=== PATIENT | female | born 1995 | race Caucasian/White ===

== ENCOUNTER 2018-12-27 08:38 | Emergency (ER) | payer SELFPAY ==
[~2018-12-27] VITALS: Ht 162.6 cm; Wt 61.2 kg
[2018-12-27 09:22] LABS: BASOPHILS % (AUTO) 0 % (0-10); EOSINOPHILS # (AUTO) 0.1 10^3/uL (0.0-0.3); EOSINOPHILS % (AUTO) 1 % (0-10); HEMATOCRIT 40 % (35-52); HEMOGLOBIN 13.4 G/DL (11.5-16.0); LYMPHOCYTES # (AUTO) 2.5 X 10^3 (1.0-4.0); LYMPHOCYTES % (AUTO) 44 % (12-44); MEAN CORPUSCULAR HEMOGLOBIN 27 PG (25-34); MEAN CORPUSCULAR HGB CONC 34 G/DL (32-36); MEAN CORPUSCULAR VOLUME 81 FL (80-99); MEAN PLATELET VOLUME 9.4 FL (7.4-10.4); MONOCYTES # (AUTO) 1.1 X 10^3 (0.0-1.0); MONOCYTES % (AUTO) 19 % (0-12); NEUTROPHILS % (AUTO) 36 % (42-75); PLATELET COUNT 316 10^3/uL (130-400); RED CELL DISTRIBUTION WIDTH 14.5 % (10.0-14.5); WHITE BLOOD COUNT 5.7 10^3/uL (4.3-11.0)
--- NOTE | 2018-12-27 09:28 | ED GI ---
General Chief Complaint: Abdominal/GI Problems Stated Complaint: RONNYHRREA Nursing Triage Note: AMB TO ROOM C/O DIARRHEA YESTERDAY SM AMOUNT TODAY. ALSO REQUEST A WORK NOTE. Sepsis Screen: No Definite Risk History of Present Illness Date Seen by Provider: Dec 27, 2018 Time Seen by Provider: 09:25 Initial Comments The patient reports that she began to have abdominal cramps and diarrhea yesterday afternoon. There were multiple stools involved. She did not take on a liquid diet. She reports that there have been no liquid stools today. The stomach apparently still feels queasy. No one at home has had diarrhea. Timing/Duration: 12-24 Hours Severity/Quality: Mild, Moderate Location: LLQ, Generalized Abdomen Allergies and Home Medications Allergies Coded Allergies: No Known Drug Allergies (Unverified , 12/27/18) Home Medications No Active Prescriptions or Reported Meds Patient Home Medication List Home Medication List Reviewed: Yes Review of Systems Review of Systems Constitutional: see HPI EENTM: No Symptoms Reported Respiratory: No Symptoms Reported Cardiovascular: No Symptoms Reported Gastrointestinal: See HPI Genitourinary: No Symptoms Reported Musculoskeletal: no symptoms reported Skin: no symptoms reported Psychiatric/Neurological: No Symptoms Reported Endocrine: No Symptoms Reported Past Ugehxdb-Edpbho-Vfcild Hx Patient Social History Alcohol Use: Occasionally Uses Recreational Drug Use: No Smoking Status: Former Smoker Recent Foreign Travel: No Contact w/Someone Who Travel: No Recent Infectious Disease Expo: No Past Medical History Surgeries: Yes Orthopedic, Tonsillectomy Respiratory: No Cardiac: No Neurological: No Genitourinary: No Gastrointestinal: No Musculoskeletal: No Endocrine: No HEENT: No Cancer: No Psychosocial: No Physical Exam Vital Signs Vital Signs - First Documented 12/27/18 08:48 Temp 98.6 Pulse 69 Resp 18 B/P (MAP) 107/68 (81) Pulse Ox 99 Capillary Refill : Less Than 3 Seconds Height/Weight/BMI Height: 5'4.00" Weight: 135lbs. oz. 61.804338yt; BMI Method:Stated General Appearance: no apparent distress HEENT: normal ENT inspection Neck: full range of motion Respiratory: chest non-tender, lungs clear, normal breath sounds, no respiratory distress, no accessory muscle use Cardiovascular: normal peripheral pulses, regular rate, rhythm, no edema, no gallop, no JVD, no murmur Gastrointestinal: non tender, abnormal bowel sounds (hypoactive bowel sounds) Back: normal inspection, no CVA tenderness Neurologic/Psychiatric: instructional leader II-XII nml as tested Skin: normal color, warm/dry Progress/Results/Core Measures Results/Orders Lab Results Laboratory Tests Test 12/27/18 09:10 12/27/18 09:13 Range/Units Urine Color YELLOW Urine Clarity CLEAR Urine pH 8 5-9 Urine Specific [place] 1.010 L 1.016-1.022 Urine Protein NEGATIVE NEGATIVE Urine Glucose (UA) NEGATIVE NEGATIVE Urine Ketones NEGATIVE NEGATIVE Urine Nitrite NEGATIVE NEGATIVE Urine Bilirubin NEGATIVE NEGATIVE Urine Urobilinogen NORMAL NORMAL MG/DL Urine Leukocyte Esterase NEGATIVE NEGATIVE Urine RBC (Auto) NEGATIVE NEGATIVE Urine RBC NONE /HPF Urine WBC RARE /HPF Urine Squamous Epithelial Cells 10-25 H /HPF Urine Crystals NONE /LPF Urine Bacteria TRACE /HPF Urine Casts NONE /LPF Urine Mucus NEGATIVE /LPF Urine Culture Indicated NO White Blood Count 5.7 4.3-11.0 10^3/uL Red Blood Count 4.94 4.35-5.85 10^6/uL Hemoglobin 13.4 11.5-16.0 G/DL Hematocrit 40 35-52 % Mean Corpuscular Volume 81 80-99 FL Mean Corpuscular Hemoglobin 27 25-34 PG Mean Corpuscular Hemoglobin Concent 34 32-36 G/DL Red Cell Distribution Width 14.5 10.0-14.5 % Platelet Count 316 130-400 10^3/uL Mean Platelet Volume 9.4 7.4-10.4 FL Neutrophils (%) (Auto) 36 L 42-75 % Lymphocytes (%) (Auto) 44 12-44 % Monocytes (%) (Auto) 19 H 0-12 % Eosinophils (%) (Auto) 1 0-10 % Basophils (%) (Auto) 0 0-10 % Neutrophils # (Auto) 2.0 1.8-7.8 X 10^3 Lymphocytes # (Auto) 2.5 1.0-4.0 X 10^3 Monocytes # (Auto) 1.1 H 0.0-1.0 X 10^3 Eosinophils # (Auto) 0.1 0.0-0.3 10^3/uL Basophils # (Auto) 0.0 0.0-0.1 10^3/uL Neutrophils % (Manual) 32 % Lymphocytes % (Manual) 52 % Monocytes % (Manual) 13 % Eosinophils % (Manual) 0 % Basophils % (Manual) 0 % Band Neutrophils 2 % Reactive Lymphocytes 1 % Elliptocytes SLIGHT Sodium Level 137 135-145 MMOL/L Potassium Level 4.2 3.6-5.0 MMOL/L Chloride Level 105 98-107 MMOL/L Carbon Dioxide Level 22 21-32 MMOL/L Anion Gap 10 5-14 MMOL/L Blood Urea Nitrogen 10 7-18 MG/DL Creatinine 0.72 0.60-1.30 MG/DL Estimat Glomerular Filtration Rate > 60 BUN/Creatinine Ratio 14 Glucose Level 96 70-105 MG/DL Calcium Level 9.3 8.5-10.1 MG/DL Corrected Calcium 8.9 8.5-10.1 MG/DL Total Bilirubin 0.9 0.1-1.0 MG/DL Aspartate Amino Transf (AST/SGOT) 19 5-34 U/L Alanine Aminotransferase (ALT/SGPT) 17 0-55 U/L Alkaline Phosphatase 47 40-136 U/L Total Protein 6.8 6.4-8.2 GM/DL Albumin 4.5 3.2-4.5 GM/DL My Orders Orders - RUSTY TALAMANTES MD Cbc With Automated Diff (12/27/18 09:00) Comprehensive Metabolic Panel (12/27/18 09:00) Ua Culture If Indicated (12/27/18 09:00) Manual Differential (12/27/18 09:13) Vital Signs/I&O 12/27/18 08:48 Temp 98.6 Pulse 69 Resp 18 B/P (MAP) 107/68 (81) Pulse Ox 99 Blood Pressure Mean: 81 Departure Communication (Admissions) CBC chemistry and Impression Primary Impression: diarrhea Disposition: 01 HOME, SELF-CARE Condition: Improved Departure-Patient Inst. Decision time for Depature: 10:07 Referrals: NO,LOCAL PHYSICIAN (PCP) Primary Care Physician Patient Instructions: No Instuctions Given Add. Discharge Instructions: All discharge instructions reviewed with patient and/or family. Voiced understanding. Clear liquid diet until you have been 24 hours without a liquid stool. At that time began a limited diet as we have discussed. Scripts No Active Prescriptions or Reported Meds Work/School Note: Family Work Note Patient Received Medical Care In the Emergency Department On: Dec 27, 2018 Patient Will Be Able to Return to Work/School On: Dec 28, 2018 Patient Restrictions: No restrictions RUSTY TALAMANTES MD Dec 27, 2018 09:28
[2018-12-27 09:30] LABS: BILIRUBIN,URINE NEGATIVE (NEGATIVE); CLARITY,URINE CLEAR; COLOR,URINE YELLOW; GLUCOSE, URINE (UA) NEGATIVE (NEGATIVE); KETONES,URINE NEGATIVE (NEGATIVE); LEUKOCYTE ESTERASE ,URINE NEGATIVE (NEGATIVE); NITRITE,URINE NEGATIVE (NEGATIVE); PH,URINE 8 (5-9); PROTEIN,URINE NEGATIVE (NEGATIVE); UROBILINOGEN,URINE NORMAL (NORMAL)
[2018-12-27 09:39] LABS: BACTERIA,URINE TRACE /HPF; WBC,URINE RARE /HPF
[2018-12-27 09:43] LABS: ALANINE AMINOTRANSFERASE 17 U/L (0-55); ALBUMIN 4.5 GM/DL (3.2-4.5); ALKALINE PHOSPHATASE 47 U/L (40-136); BILIRUBIN,TOTAL 0.9 MG/DL (0.1-1.0); BUN/CREATININE RATIO 14; CALCIUM 9.3 MG/DL (8.5-10.1); CARBON DIOXIDE 22 MMOL/L (21-32); CHLORIDE 105 MMOL/L (98-107); CREATININE SERUM 0.72 MG/DL (0.60-1.30); GFR ESTIMATED > 60; GLUCOSE 96 MG/DL (70-105); POTASSIUM 4.2 MMOL/L (3.6-5.0); SODIUM 137 MMOL/L (135-145); TOTAL PROTEIN 6.8 GM/DL (6.4-8.2)
[2018-12-27 09:46] LABS: BAND NEUTROPHILS 2 %; BASOPHILS % (MANUAL) 0 %; ELLIPT/OVALOCYTES SLIGHT; EOSINOPHILS % (MANUAL) 0 %; LYMPHOCYTES % (MANUAL) 52 %; MONOCYTES % (MANUAL) 13 %; NEUTROPHILS % (MANUAL) 32 %; REACTIVE LYMPHOCYTES 1 %
--- OUTSIDE RECORDS SUMMARY | 2018-12-27 10:20 | XMS REPORT | Continuity of Care Document ---
Author Organization Unknown Address Unknown Allergies Active Description Code Type Severity Reaction Onset Reported/Identified Relationship to Patient Clinical Status Yes No Known Allergies No Known Allergies Drug Allergy Unknown N/A 07/25/2017 Medications There is no data. Problems There is no data. Procedures There is no data. Results There is no data. Encounters ACCT No. Visit Date/Time Discharge Status Pt. Type Provider Facility Loc./Unit Complaint [id number] 07/25/2017 14:25:00 07/25/2017 14:45:00 DIS Emergency [facility]
[2018-12-27 10:50] VITALS: BP 114/100
== END 2018-12-27 10:50 | disposition home or self-care (01) ==
LOC: ER 08:41
DX: R19.7 Diarrhea, unspecified (principal); Z87.891 Personal history of nicotine dependence; Z90.89 Acquired absence of other organs
CPT/HCPCS: 36415; 80053; 81000; 85007; 85027

== ENCOUNTER 2019-01-08 07:46 | Emergency (ER) | payer SELFPAY ==
[~2019-01-08] VITALS: Ht 162.6 cm; Wt 61.2 kg
--- OUTSIDE RECORDS SUMMARY | 2019-01-08 07:50 | XMS REPORT | Continuity of Care Document ---
[...] Status Pt. Type Provider Facility Loc./Unit Complaint [id number] 07/25/2017 14:25:00 07/25/2017 14:45:[address] [facility]
[2019-01-08] MEDS ORDERED: morphine INJ 10 MG/ML 1ML (SYR OR VIAL) IM STA (08:10)
[2019-01-08] MEDS ORDERED: AUGMENTIN 875 MG TAB (AMOXICILLIN/CLAVULANATE) PO STA (08:10)
[2019-01-08] MEDS ORDERED: KETOROLAC 60 MG/2 ML VIAL IM STA (08:10)
[2019-01-08] MEDS ORDERED: TETANUS,DIPTH,PERTUSS P/F (BOOSTRIX) 0.5 ML VIAL IM ONE (08:15)
--- NOTE | 2019-01-08 09:07 | ED Integumentary General ---
General Chief Complaint: Bite-Animal/Human/Insect Stated Complaint: DOG BITE Nursing Triage Note: PT AMB TO TRIAGE WITH COMPLAINT OF DOG BITE TO RIGHT HAND. STATES NEIGHBORS DOG, UNKNOWN VACCINATION STATUS. STATES SHE WAS TAKING HER DOG OUT TO THE BATHROOM WHEN THE OTHER DOG CAME INTO THE YARD, TRIED TO ATTACK HER DOG. STATES SHE REACHED DOWN TO GRAB HER DOG WHEN THE NEIGHBORS DOG BIT HER RIGHT HAND. Source: patient Exam Limitations: no limitations History of Present Illness Date Seen by Provider: Jan 08, 2019 Time Seen by Provider: 08:05 Initial Comments Here with complaint of bite to the right hand. Has puncture wound to the top of the hand and at the base of the thumb on the palmar surface. Dog was not hers. She went outside to walk her dog and another dog approached. She collar her dog and the other dog reached out and bit her on the hand. He is the only bites. Unsure of the status of the other dog and police are looking for it now. Tetanus is not up-to-date. Denies other injury or concerns. Does have scratches where the dog jumped on her. Timing/Duration: just prior to arrival (approximately 60 minutes ago) Severity: moderate Location: hands Possible Cause: other (dog bite) Associated Symptoms: No numbness, No paresthesia; other (puncture wounds) Allergies and Home Medications Allergies Coded Allergies: No Known Drug Allergies (Unverified , 12/27/18) Home Medications No Active Prescriptions or Reported Meds Patient Home Medication List Home Medication List Reviewed: Yes Review of Systems Review of Systems Constitutional: see HPI; No chills, No fever Respiratory: no symptoms reported Cardiovascular: no symptoms reported Gastrointestinal: no symptoms reported Musculoskeletal: see HPI, joint pain, muscle pain Skin: change in color, lesions Past Hvbejqx-Fpogiv-Ikkbrz Hx Past Med/Social Hx: Reviewed Nursing Past Med/Soc Hx Patient Social History Alcohol Use: Occasionally Uses Recreational Drug Use: No Smoking Status: Never a Smoker Recent Foreign Travel: No Contact w/Someone Who Travel: No Recent Infectious Disease Expo: No Immunizations Up To Date Tetanus Booster (TDap): Unknown PED Vaccines UTD: Yes Past Medical History Surgeries: Yes Orthopedic, Tonsillectomy Respiratory: No Cardiac: No Neurological: No Genitourinary: No Gastrointestinal: No Musculoskeletal: No Endocrine: No HEENT: No Cancer: No Psychosocial: No Family Medical History Reviewed Nursing Family Hx Physical Exam Vital Signs Vital Signs - First Documented 01/08/19 07:57 Temp 99.7 Pulse 69 Resp 20 B/P (MAP) 115/73 (87) Pulse Ox 99 O2 Delivery Room Air Capillary Refill : Less Than 3 Seconds General Appearance: WD/WN, no apparent distress Cardiovascular: regular rate, rhythm, no murmur Respiratory: lungs clear, normal breath sounds Gastrointestinal: non tender, soft Neurologic/Psychiatric: alert, oriented x 3 Skin: warm/dry, other (puncture wound to the top of the hand over mid second metacarpal and base of the thumb on the thenar area on the palmar surface. Bleeding controlled. Retains range of motion but with pain. Swelling noted around wounds.) Progress/Results/Core Measures Results/Orders My Orders Orders - NEREIDA ABBOTT MD Amoxicillin/Clavulanate Tablet (Augmenti (01/08/19 08:10) Ketorolac Injection (Toradol Injection) (01/08/19 08:10) Morphine Injection (Morphine Injection (01/08/19 08:10) Dipht,Pertuss(Acell),Tet Adult (Boostrix (01/08/19 08:15) Medications Given in ED Current Medications Medications Dose Ordered Sig/Braulio Route Start Time Stop Time Status Last Admin Dose Admin Diphtheria/ Tetanus/Acell Pertussis 0.5 ml ONCE ONCE IM 01/08/19 08:15 01/08/19 08:16 DC 01/08/19 08:25 0.5 ML Vital Signs/I&O 01/08/19 07:57 Temp 99.7 Pulse 69 Resp 20 B/P (MAP) 115/73 (87) Pulse Ox 99 O2 Delivery Room Air Blood Pressure Mean: 87 Progress Progress Note : Progress Note Seen and evaluated. Toradol 60 mg IM and morphine 5 mg IV. Ordered. Augmentin 875 mg by mouth. Wounds cleaned and dressed by nursing. 0902: Police have pound dog and are going to place it in quarantine. No indication for rabies vaccination at this point. Patient feels better. Discharged home with return precautions. Patient verbalize understanding instructions and agreement with plan. Tetanus was updated. Departure Impression Primary Impression: Dog bite Qualified Codes: W54.0XXA - Bitten by dog, initial encounter Disposition: 01 HOME, SELF-CARE Condition: Improved Departure-Patient Inst. Decision time for Depature: 09:07 Referrals: NO,LOCAL PHYSICIAN (PCP/Family) Primary Care Physician Patient Instructions: Animal Bites (DC) Add. Discharge Instructions: All discharge instructions reviewed with patient and/or family. Voiced understanding. Take medications as directed. You may take Tylenol/acetaminophen 1000 mg every 6 hours as needed for pain. You may take ibuprofen 600 mg every 8 hours as needed for pain. Keep wound clean. You may use antibiotic ointment and Band-Aid over wound twice daily as needed for the next several days and then as needed. Do not soak wound in any body of water. You may wash wounds gently with soap and water. Return for worse pain, fever, vomiting, weakness, foul-smelling drainage, red streaks up the hand or arm or other concerns as needed. Scripts Amoxicillin/Potassium Clav (Amox Tr-K Clv 500-125 mg Tab) 1 Each Tablet 1 EACH PO TID, #21 TAB Prov: NEREIDA ABBOTT MD 01/08/19 NEREIDA ABBOTT MD Jan 08, 2019 09:07
[2019-01-08] MEDS ORDERED: AMOX1TAB11 PO (09:13)
[2019-01-08 09:49] VITALS: BP 115/73
== END 2019-01-08 09:49 | disposition home or self-care (01) ==
LOC: EDUNIT# 07:46 → ER 07:47
DX: S61.451A Open bite of right hand, initial encounter (principal); Z90.89 Acquired absence of other organs; Z23 Encounter for immunization; W54.0XXA Bitten by dog, initial encounter
CPT/HCPCS: 90471; 90715; 96372

== ENCOUNTER 2019-01-09 18:47 | Emergency (ER) | payer SELFPAY ==
[~2019-01-09] VITALS: Ht 162.6 cm; Wt 61.2 kg
[~2019-01-09 18:47] MED LIST: AMOX1TAB11 PO
--- NOTE | 2019-01-09 19:11 | ED General ---
General Chief Complaint: Bite-Animal/Human/Insect Stated Complaint: DOG BITE ON R HAND Nursing Triage Note: PT STATES SHE WAS BITE YESTERDAY BY A DOG AND WAS SEEN IN THIS ER. PT STATES HAVING WORSENING SWELLING, PAIN AND DIFFICULTY BENDING FINGERS. PT DENIES N/V/D/FEVER. Nursing Sepsis Screen: No Definite Risk Source of Information: Patient, Old Records Exam Limitations: No Limitations History of Present Illness Date Seen by Provider: Jan 09, 2019 Time Seen by Provider: 18:55 Initial Comments This 23-year-old young lady presents to the emergency room with complaints of worsening swelling and pain in the right hand and wrist after a dog bite. She was bit early yesterday and presented to the emergency room. She was treated with Augmentin, tetanus booster, Toradol, and morphine. She had short-term improvement after these therapies but swelling and pain has worsened. She has significantly decreased range of motion. No imaging studies were performed yesterday but she states the bite was of significant force. She is afebrile. The dog has been quarantined. She started the Augmentin promptly and has taken several doses. Allergies and Home Medications Allergies Coded Allergies: vancomycin (Verified Allergy, Intermediate, Hives, 01/09/19) Home Medications Amoxicillin/Potassium Clav 1 Each Tablet, 1 EACH PO TID Prescribed by: NEREIDA ABBOTT on 01/08/19 4411 Patient Home Medication List Home Medication List Reviewed: Yes Review of Systems Review of Systems Constitutional: no symptoms reported EENTM: no symptoms reported Respiratory: no symptoms reported Cardiovascular: no symptoms reported Gastrointestinal: no symptoms reported Genitourinary: no symptoms reported : No Musculoskeletal: see HPI Skin: see HPI Psychiatric/Neurological: No Symptoms Reported Hematologic/Lymphatic: No Symptoms Reported Immunological/Allergic: no symptoms reported Past Gufaxrt-Gfqaey-Stzyeh Hx Past Med/Social Hx: Reviewed Nursing Past Med/Soc Hx Patient Social History Alcohol Use: Denies Use Recreational Drug Use: No Recent Foreign Travel: No Contact w/Someone Who Travel: No Recent Infectious Disease Expo: No Physical Abuse: No Sexual Abuse: No Mistreated: No Fear: No Immunizations Up To Date Tetanus Booster (TDap): Unknown PED Vaccines UTD: Yes Past Medical History Surgeries: Yes Orthopedic, Tonsillectomy Respiratory: No Cardiac: No Neurological: No : No Genitourinary: No Gastrointestinal: No Musculoskeletal: No Endocrine: No HEENT: No Cancer: No Psychosocial: No Physical Exam Vital Signs Vital Signs - First Documented 01/09/19 01/09/19 18:55 22:42 Temp 97.6 Pulse 75 Resp 18 B/P (MAP) 104/58 (73) Pulse Ox 98 O2 Delivery Room Air Capillary Refill : Less Than 3 Seconds Height, Weight, BMI Height: 5'4.00" Weight: 135lbs. oz. 61.171333zh; BMI Method:Stated General Appearance: WD/WN, Mild Distress HEENT: PERRL/EOMI, Normal ENT Inspection, Pharynx Normal Neck: Normal Inspection Respiratory: Lungs Clear, Normal Breath Sounds, No Accessory Muscle Use Cardiovascular: Regular Rate, Rhythm, No Edema, No Murmur Extremity: Swelling, Other (significant edema in the right hand and her lesser extent in the fingers. There is decreased range of motion to less than 50 percent of normal. Range of motion in wrist is minimally limited. She has mild tenderness in the wrist and significant tenderness in the hand. There is mild erythema of the hand. No drainage from the scabbed wounds on the dorsal and ventral aspect of the hand. 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 Norm as Tested Skin: Warm/Dry, Ecchymosis, Erythema Focused Exam Lactate Level 01/09/19 20:19: Lactic Acid Level 0.80 Lactic Acid Level Progress/Results/Core Measures Suspected Sepsis Recent Fever Within 48 Hours: No Infection Criteria Present: None New/Unexplained Altered Menta: No Sepsis Screen: No Definite Risk SIRS Temperature:97.6 Pulse: 75 Respiratory Rate: 18 Laboratory Tests 01/09/19 20:19: White Blood Count 9.4 Blood Pressure 104 /58 Mean: 73 01/09/19 20:19: Lactic Acid Level 0.80 Laboratory Tests 01/09/19 20:19: Creatinine 0.80, Platelet Count 366, Total Bilirubin 0.5 Results/Orders Lab Results Laboratory Tests Test 01/09/19 20:19 Range/Units White Blood Count 9.4 4.3-11.0 10^3/uL Red Blood Count 4.48 4.35-5.85 10^6/uL Hemoglobin 12.1 11.5-16.0 G/DL Hematocrit 37 35-52 % Mean Corpuscular Volume 83 80-99 FL Mean Corpuscular Hemoglobin 27 25-34 PG Mean Corpuscular Hemoglobin Concent 33 32-36 G/DL Red Cell Distribution Width 14.9 H 10.0-14.5 % Platelet Count 366 130-400 10^3/uL Mean Platelet Volume 9.3 7.4-10.4 FL Neutrophils (%) (Auto) 47 42-75 % Lymphocytes (%) (Auto) 36 12-44 % Monocytes (%) (Auto) 15 H 0-12 % Eosinophils (%) (Auto) 2 0-10 % Basophils (%) (Auto) 0 0-10 % Neutrophils # (Auto) 4.4 1.8-7.8 X 10^3 Lymphocytes # (Auto) 3.4 1.0-4.0 X 10^3 Monocytes # (Auto) 1.4 H 0.0-1.0 X 10^3 Eosinophils # (Auto) 0.2 0.0-0.3 10^3/uL Basophils # (Auto) 0.0 0.0-0.1 10^3/uL Sodium Level 140 135-145 MMOL/L Potassium Level 3.7 3.6-5.0 MMOL/L Chloride Level 105 98-107 MMOL/L Carbon Dioxide Level 27 21-32 MMOL/L Anion Gap 8 5-14 MMOL/L Blood Urea Nitrogen 10 7-18 MG/DL Creatinine 0.80 0.60-1.30 MG/DL Estimat Glomerular Filtration Rate > 60 BUN/Creatinine Ratio 13 Glucose Level 69 L 70-105 MG/DL Lactic Acid Level 0.80 0.50-2.00 MMOL/L Calcium Level 9.8 8.5-10.1 MG/DL Corrected Calcium 9.5 8.5-10.1 MG/DL Total Bilirubin 0.5 0.1-1.0 MG/DL Aspartate Amino Transf (AST/SGOT) 17 5-34 U/L Alanine Aminotransferase (ALT/SGPT) 16 0-55 U/L Alkaline Phosphatase 56 40-136 U/L C-Reactive Protein High Sensitivity 0.69 H 0.00-0.50 MG/DL Total Protein 6.6 6.4-8.2 GM/DL Albumin 4.4 3.2-4.5 GM/DL Serum Test, Qualitative NEGATIVE NEGATIVE My Orders Orders - REY MEEK MD Wrist, Right, 3 Views Or More (01/09/19 19:02) Hand, Right, 3 Views (01/09/19 19:02) Hydrocodone/Apap 5/325 Tablet (Lortab 5 (01/09/19 20:00) Cbc With Automated Diff (01/09/19 20:04) Comprehensive Metabolic Panel (01/09/19 20:04) Hs C Reactive Protein (01/09/19 20:04) Blood Culture (01/09/19 20:04) Lactic Acid Analyzer (01/09/19 20:04) Ed Iv/Invasive Line Start (01/09/19 20:04) Piperacillin/Tazobactam (Bulk) (Zosyn In (01/09/19 20:15) Ns (Ivpb) (Sodium Chloride 0.9% Ivpb Bag (01/09/19 20:18) Piperacillin Sodium/Tazobactam (Zosyn Vi (01/09/19 20:18) Water (Sterile) For Injection (Sterile W (01/09/19 20:18) Hcg,Qualitative Serum (01/09/19 21:00) Vancomycin Injection (Vancomycin Injecti (01/09/19 21:15) Ketorolac Injection (Toradol Injection) (01/09/19 21:30) Ns Iv 1000 Ml (Sodium Chloride 0.9%) (01/09/19 21:23) Vancomycin Injection (Vancomycin Injecti (01/09/19 21:30) Diphenhydramine Injection (Benadryl Inje (01/09/19 22:15) Methylprednisolone Sod Succ (Solu-Medrol (01/09/19 22:15) Famotidine Injection (Pepcid Injection) (01/09/19 22:15) Medications Given in ED Current Medications Medications Dose Ordered Sig/Braulio Route Start Time Stop Time Status Last Admin Dose Admin Acetaminophen/ Hydrocodone Bitart 1 tab ONCE ONCE PO 01/09/19 20:00 01/09/19 20:01 DC 01/09/19 20:30 1 TAB Diphenhydramine HCl 25 mg ONCE ONCE IVP 01/09/19 22:15 01/09/19 22:16 DC 01/09/19 22:20 25 MG Famotidine 20 mg ONCE ONCE IVP 01/09/19 22:15 01/09/19 22:16 DC 01/09/19 22:19 20 MG Ketorolac Tromethamine 15 mg ONCE ONCE IVP 01/09/19 21:30 01/09/19 21:31 DC 01/09/19 21:39 15 MG Methylprednisolone Sodium Succinate 125 mg ONCE ONCE IVP 01/09/19 22:15 01/09/19 22:16 DC 01/09/19 22:19 125 MG Piperacillin Sod/ Tazobactam Sod 4.5 gm/Sodium Chloride 120 ml @ 240 mls/hr ONCE ONCE IV 01/09/19 20:15 01/09/19 20:44 DC 01/09/19 20:30 240 MLS/HR Sodium Chloride 1,000 ml @ 0 mls/hr Q0M ONCE IV 01/09/19 21:23 01/09/19 21:25 DC 01/09/19 21:39 0 MLS/HR Vancomycin HCl 1000 mg/Sodium Chloride 250 ml @ 250 mls/hr ONCE ONCE IV 01/09/19 21:30 01/09/19 22:29 DC 01/09/19 21:39 250 MLS/HR Vital Signs/I&O 01/09/19 01/09/19 01/09/19 01/09/19 18:55 20:32 21:39 22:42 Temp 97.6 97.6 97.6 97.8 Pulse 75 67 64 Resp 18 18 18 B/P (MAP) 104/58 (73) 97/64 112/74 (87) Pulse Ox 98 O2 Delivery Room Air 01/10/19 00:00 Intake Total 1245 ml Balance 1245 ml Capillary Refill : Less Than 3 Seconds Blood Pressure Mean: 73 Progress Note #1: Time: 19:11 Progress Note Patient was seen and examined and x-rays were ordered. Progress Note #2: Time: 22:00 Progress Note X-rays were reviewed and no fractures were identified. Patient was reexamined and found to have significant pain in the region of the flexor tendons with any active or passive extension of the fingers. There is also significant tenderness over the flexor tendon region. Because of this, there was concern for possible developing flexor tenosynovitis from bacterial infection. I discussed the case with Dr. Wiley who also expressed this concern. [facility], he will be traveling out of state early in the morning and is unavailable to care for this patient over the next 10 days. He advised this patient be admitted to a facility with a hand surgeon and treated with IV antibiotics. I have called multiple facilities to facilitate this plan. I discussed the case with Dr. Nagel, hand surgeon renewable energy division manager at [facility]. He declined to admit the patient but stated he could see her in the clinic in the morning and refer her onto an appropriate surgeon if he felt surgery was necessary. Given Dr. Wiley's opinion about IV antibiotics and admission, the patient and I did not feel this was the best route of care for her. I then called [facility] in [place] at 20:32. I spoke with Dr. Guzman, trauma ortho pedist renewable energy division manager. He agreed with Dr. Wiley and recommended admission with IV antibiotics and a hand surgeon evaluation. Unfortunately, he did not have a hand surgeon on-call for emergencies. He referred me to [facility] in [place]. I discussed the case with the call center at [facility] in [place]. They declined stating there are other facilities within similar proximity that would better serve the patient. I then discussed further options with the patient including follow-up with Dr. Nagel in [place] as an outpatient tomorrow versus admission to our facility for IV antibiotics and monitoring of progression versus transfer to another facility such as [facility] with an available hand surgeon. Patient wished to explore transfer to [facility]. I discussed the case with Dr. Lopez at 21:15. He graciously accepted the transfer. Plan is for patient to be transferred via private vehicle to the [facility] emergency room where she will be evaluated further. In the meantime, patient has been treated with Zosyn and vancomycin. Hydrocodone and Toradol have been given for pain management. Labs were reviewed and were essentially unremarkable. Blood cultures were obtained. She has been instructed to remain NPO and has been hydrated with 1 L of IV fluid. Progress Note #3: Time: 22:18 Progress Note After receiving approximately 500 mg of vancomycin, patient developed intense itching and hives on her trunk. There is no respiratory, lip, or tongue involvement. Vancomycin was immediately stopped and Benadryl, Pepcid, and Solu- Medrol were administered. Progress Note #4: Time: 22:43 Progress Note Patient feels better after treatment and rash has resolved. Patient has been instructed to go directly to [facility] ER. Update was provided to [facility] transfer center. Diagnostic Imaging Diagonstic Imaging: Xray Plain Films/CT/US/NM/MRI: other (right wrist) Comments Right wrist x-ray viewed by me and report reviewed. See report below: NAME: FADI QUEZADA [facility] REC#: [id number] PT STATUS: REG ER : 1995 PHYSICIAN: REY MEEK MD ADMIT DATE: 01/09/19/ER Draft Date of Exam:01/09/19 WRIST, RIGHT, 3 VIEWS OR MORE INDICATION: Patient was bit by a dog with increased swelling and pain in the right hand and wrist. Difficulty bending fingers. Dog bite is in the region of the proximal second and third metacarpals. FINDINGS: Three views of the right wrist demonstrate normal ossification. No fracture, dislocation, foreign body, or soft tissue gas is present. IMPRESSION: Normal right wrist. Dictated on workstation # [id number] Dict: 01/09/191939 Trans: 01/09/191942 [id number] Interpreted by: ERA BUTT MD Diagonstic Imaging: Xray Plain Films/CT/US/NM/MRI: hand Comments Right hand x-ray viewed by me and report reviewed. See report below: NAME: FADI QUEZADA [facility] REC#: [id number] PT STATUS: REG ER : 1995 PHYSICIAN: REY MEEK MD ADMIT DATE: 01/09/19/ER Draft Date of Exam:01/09/19 HAND, RIGHT, 3 VIEWS INDICATION: Patient was bitten by a dog yesterday with pain and swelling in the hand, difficulty bending fingers. FINDINGS: Three views of the right hand demonstrate normal ossification. No fracture, dislocation, foreign body, or soft tissue gas is present. There is soft tissue swelling over the dorsum of the hand. IMPRESSION: There is soft tissue swelling with no osseous abnormalities or foreign bodies. Dictated on workstation # [id number] Dict: 01/09/191940 Trans: 01/09/191948 [id number] Interpreted by: ERA BUTT MD Departure Impression Primary Impression: Dog bite Qualified Codes: W54.0XXD - Bitten by dog, subsequent encounter Additional Impressions: Infection of right hand due to bite Qualified Codes: S61.451D - Open bite of right hand, subsequent encounter; L08.9 - Local infection of the skin and subcutaneous tissue, unspecified Allergic reaction due to antibacterial drug Disposition: HOME, SELF-CARE Condition: Improved Transfer Time Spoke to Accepting Phy: 21:20 Transfer Progress Notes Transfer accepted by Dr. Lopez at [facility]. Transfer Facility: [facility] Method of Transfer: Private Vehicle Departure-Patient Inst. Referrals: NO,LOCAL PHYSICIAN (PCP/Family) Primary Care Physician REY MEEK MD Jan 09, 2019 19:11
--- NOTE | 2019-01-09 19:44 | Diagnostic Imaging Report ---
INDICATION: Patient was bit by a dog with increased swelling and pain in the right hand and wrist. Difficulty bending fingers. Dog bite is in the region of the proximal second and third metacarpals. FINDINGS: Three views of the right wrist demonstrate normal ossification. No fracture, dislocation, foreign body, or soft tissue gas is present. IMPRESSION: Normal right wrist. Dictated by: Dictated on workstation # [id number]
--- NOTE | 2019-01-09 19:49 | Diagnostic Imaging Report ---
INDICATION: Patient was bitten by a dog yesterday with pain and swelling in the hand, difficulty bending fingers. FINDINGS: Three views of the right hand demonstrate normal ossification. No fracture, dislocation, foreign body, or soft tissue gas is present. There is soft tissue swelling over the dorsum of the hand. IMPRESSION: There is soft tissue swelling with no osseous abnormalities or foreign bodies. Dictated by: Dictated on workstation # [id number]
[2019-01-09] MEDS ORDERED: HYDROcodone/APAP 5 MG/325 MG (LORTAB) TAB PO ONE (20:00)
[2019-01-09] MEDS ORDERED: PIPERACILLIN/TAZOBACTAM (BULK) 4.5 GM in NS (IVPB) 100 ML IV ONE (20:15)
[2019-01-09] MEDS ORDERED: PIPERACILLIN/TAZO 4.5 GM VIAL (ZOSYN) IV ONE (20:18)
[2019-01-09] MEDS ORDERED: NS (IVPB) 100 ML ONE (20:18)
[2019-01-09] MEDS ORDERED: WATER (STERILE) FOR INJECTION 20 ML ONE (20:18)
[2019-01-09 20:29] LABS: BASOPHILS % (AUTO) 0 % (0-10); EOSINOPHILS # (AUTO) 0.2 10^3/uL (0.0-0.3); EOSINOPHILS % (AUTO) 2 % (0-10); HEMATOCRIT 37 % (35-52); HEMOGLOBIN 12.1 G/DL (11.5-16.0); LYMPHOCYTES # (AUTO) 3.4 X 10^3 (1.0-4.0); LYMPHOCYTES % (AUTO) 36 % (12-44); MEAN CORPUSCULAR HEMOGLOBIN 27 PG (25-34); MEAN CORPUSCULAR HGB CONC 33 G/DL (32-36); MEAN CORPUSCULAR VOLUME 83 FL (80-99); MEAN PLATELET VOLUME 9.3 FL (7.4-10.4); MONOCYTES # (AUTO) 1.4 X 10^3 (0.0-1.0); MONOCYTES % (AUTO) 15 % (0-12); NEUTROPHILS # (AUTO) 4.4 X 10^3 (1.8-7.8); NEUTROPHILS % (AUTO) 47 % (42-75); PLATELET COUNT 366 10^3/uL (130-400); RED CELL DISTRIBUTION WIDTH 14.9 % (10.0-14.5); WHITE BLOOD COUNT 9.4 10^3/uL (4.3-11.0)
[2019-01-09 20:50] LABS: ALANINE AMINOTRANSFERASE 16 U/L (0-55); ALBUMIN 4.4 GM/DL (3.2-4.5); ALKALINE PHOSPHATASE 56 U/L (40-136); BILIRUBIN,TOTAL 0.5 MG/DL (0.1-1.0); BUN/CREATININE RATIO 13; CALCIUM 9.8 MG/DL (8.5-10.1); CARBON DIOXIDE 27 MMOL/L (21-32); CHLORIDE 105 MMOL/L (98-107); GFR ESTIMATED > 60; GLUCOSE 69 MG/DL (70-105); POTASSIUM 3.7 MMOL/L (3.6-5.0); SODIUM 140 MMOL/L (135-145); TOTAL PROTEIN 6.6 GM/DL (6.4-8.2)
[2019-01-09] MEDS ORDERED: VANCOMYCIN INJECTION 1,000 MG in NS (IVPB) 250 ML IV SCH (21:15)
[2019-01-09] MEDS ORDERED: NS IV 1000 ML 1,000 ML IV ONE (21:23)
[2019-01-09] MEDS ORDERED: VANCOMYCIN INJECTION 1,000 MG in NS (IVPB) 250 ML IV ONE (21:30)
[2019-01-09] MEDS ORDERED: KETOROLAC 30 MG/ML VIAL IVP ONE (21:30)
--- NOTE | 2019-01-09 21:50 | NUR ---
report to constance at [facility].
--- NOTE | 2019-01-09 22:00 | NUR ---
consent for transfer obtained. reinforced with pt need to proceed directly [facility] and remain npo until after evaluated by dr burgos at [facility]
--- NOTE | 2019-01-09 22:13 | NUR ---
pt c/o generalized itching, erp notified. vancomycin stopped.
[2019-01-09] MEDS ORDERED: diphenhydrAMINE 50 MG/ML INJ (BENADRYL) IVP ONE (22:15)
[2019-01-09] MEDS ORDERED: FAMOTIDINE 20MG/2ML IV (PEPCID) IVP ONE (22:15)
[2019-01-09] MEDS ORDERED: methylPREDNISolone 125 MG (Solu-MEDROL) VIAL IVP ONE (22:15)
[2019-01-09 22:42] VITALS: BP 112/74
--- NOTE | 2019-01-09 22:42 | NUR ---
redness/itching improved.
--- NOTE | 2019-01-09 22:57 | NUR ---
[facility] called informed of pt's departure. spoke with constance briggs rn updated on pt condition changes after initial report.
--- OUTSIDE RECORDS SUMMARY | 2019-01-10 01:28 | XMS REPORT | Continuity of Care Document ---
[...] Status Pt. Type Provider Facility Loc./Unit Complaint [id number] 07/25/2017 14:25:00 07/25/2017 14:45:00 DIS Emergency [facility]
== END 2019-01-09 22:57 | disposition short-term general hospital (02) ==
LOC: EDUNIT# 18:47 → ER 18:49
DX: S61.451D Open bite of right hand, subsequent encounter (principal); L08.9 Local infection of the skin and subcutaneous tissue, unspecified; T36.0X5A Adverse effect of penicillins, initial encounter; Z88.1 Allergy status to other antibiotic agents; W57.XXXD Bitten or stung by nonvenomous insect and other nonvenomous arthropods, subsequent encounter
CPT/HCPCS: 36415; 73110; 73130; 80053; 83605; 84703; 85025; 86141; 87040; 96361; 96365; 96367; 96375

== ENCOUNTER 2019-01-17 15:25 | Emergency (ER) | payer SELFPAY ==
[~2019-01-17] VITALS: Ht 162.6 cm; Wt 61.2 kg
--- OUTSIDE RECORDS SUMMARY | 2019-01-17 15:30 | XMS REPORT | Continuity of Care Document ---
Author Organization Unknown Address Unknown Phone Unavailable Allergies Active Description Code Type Severity Reaction Onset Reported/Identified Relationship to Patient Clinical Status Yes No Known Allergies No Known Allergies Drug Allergy Unknown N/A 07/25/2017 Medications There is no data. Problems There is no data. Procedures There is no data. Results There is no data. Encounters ACCT No. Visit Date/Time Discharge Status Pt. Type Provider Facility Loc./Unit Complaint [id number] 07/25/2017 14:25:00 07/25/2017 14:45:00 DIS Emergency [facility]
--- NOTE | 2019-01-17 15:43 | ED Suture Removal/Wound Check ---
Suture/Wound Re-check Suture Removal/Wound Recheck : Progress To ER for wound check. She recently had a dog bite to the dorsum of the right hand. She was seen here initially, then seen here the next day for significant swelling over about 24 hours. She was ultimately transferred to [facility] after receiving vancomycin and Zosyn here. There was concern for extensor tenosynovitis development. She states that while at she was kept overnight on IV antibiotics, discharged the next day. She's been changing the packing with quarter-inch iodoform packing at home daily and is getting less and less packing into the wound. She is also having less and less drainage. No fevers or chills. There is no swelling to the hand and she states overall it looks much better and feels much better. She can fully clench her fist, extend her hand at the wrist and extend each of the fingers individually without any pain or restrictions in range of motion. She states she would like a note clearing her to go back to work. She is still on oral antibiotics General Appearance: WD/WN, no apparent distress Neuro/Tendon: normal sensation Skin Exam: normal color, warm/dry Physical Exam Vital Signs Vital Signs - First Documented 01/17/19 15:30 Pulse 77 Resp 18 B/P (MAP) 105/64 Pulse Ox 100 Capillary Refill : General Appearance: WD/WN, no apparent distress Extremities: normal range of motion, non-tender, other (small puncture wound to the dorsum of the right hand which does have quarter inch iodoform packing in it, but a very small amount. There is no drainage. There is only about 2-3 mm of surrounding erythema from the wound edges, certainly no cellulitis and based on her range of motion both active and passive range of motion is full and I do not have concerns for extensor tenosynovitis abscess or cellulitis. Separate puncture wound to the palmar surface at the base of the thumb which is scabbed over and without any erythema whatsoever) Neurologic/Psychiatric: alert, normal mood/affect, oriented x 3 Skin: normal color, warm/dry Skin Problem Location: upper extremities Lymphatic: no adenopathy Departure Impression Primary Impression: Encounter for wound re-check Disposition: HOME, SELF-CARE Condition: Stable Departure-Patient Inst. Decision time for Depature: 15:41 Referrals: NO,LOCAL PHYSICIAN (PCP/Family) Primary Care Physician Patient Instructions: Wound Care (DC) Add. Discharge Instructions: 1. The very last page of this discharge packet will be her work note. Your labs back to work starting tonight, keep this covered with a Band-Aid until the packing is removed and the drainage stops. No other restrictions. All discharge instructions reviewed with patient and/or family. Voiced understanding. Work/School Note: Work Release Form Date Seen in the Emergency Department: Jan 17, 2019 Return to Work: Jan 17, 2019 Restrictions: No Restrictions Other Restrictions Listed Below: Keep wound covered with Band-Aid LACY ANDINO APRN Jan 17, 2019 15:43
[2019-01-17 15:46] VITALS: BP 105/64
== END 2019-01-17 15:50 | disposition home or self-care (01) ==
LOC: EDUNIT# 15:25 → ER 15:26
DX: S61.451D Open bite of right hand, subsequent encounter (principal); W54.0XXD Bitten by dog, subsequent encounter

== ENCOUNTER 2019-04-21 09:39 | Emergency (ER) | payer SELFPAY ==
[~2019-04-21] VITALS: Ht 162.5 cm; Wt 64.8 kg
--- NOTE | 2019-04-21 10:24 | ED Cough/URI ---
General Chief Complaint: Cough/Cold/Flu Symptoms Stated Complaint: SORE THROAT, CHEST CONGESTION, Nursing Triage Note: Pt c/o cough and green/brown mucous that has persisted for three days. Pt reports fever at home of 101. Pt reports taking IBU and Nyquil at home. Sepsis Screen: No Definite Risk Source: patient Exam Limitations: no limitations History of Present Illness Date Seen by Provider: Apr 21, 2019 Time Seen by Provider: 10:12 Initial Comments Here with complaint of upper respiratory congestion, fever and cough for the last 3 days. Also complains of left upper jaw pain where she has a bad tooth. She has been using ibuprofen and NyQuil at home and that has only been sort of helping. Timing/Duration: constant Severity/Quality: moderate, dry cough Prior Episodes/Possible Cause: occasional episodes Associated Symptoms: cough, facial pain, fever/chills, nasal congestion, nasal drainage, shortness of breath, sore throat Allergies and Home Medications Allergies Coded Allergies: vancomycin (Verified Allergy, Intermediate, Hives, 01/09/19) Home Medications Amoxicillin/Potassium Clav 1 Each Tablet, 1 EACH PO TID Prescribed by: NEREIDA ABBOTT on 01/08/19 0913 Patient Home Medication List Home Medication List Reviewed: Yes Review of Systems Review of Systems Constitutional: see HPI, chills, fever EENTM: see HPI, dental problems Respiratory: see HPI; No wheezing Cardiovascular: No chest pain, No edema Gastrointestinal: no symptoms reported Skin: no symptoms reported Psychiatric/Neurological: No Symptoms Reported Past Xlykolw-Huvvxv-Vbfuby Hx Past Med/Social Hx: Reviewed Nursing Past Med/Soc Hx Patient Social History Alcohol Use: Occasionally Uses Recreational Drug Use: No Smoking Status: Never a Smoker 2nd Hand Smoke Exposure: No Recent Foreign Travel: No Contact w/Someone Who Travel: No Recent Infectious Disease Expo: No Immunizations Up To Date Tetanus Booster (TDap): Unknown PED Vaccines UTD: Yes Past Medical History Surgeries: Yes Orthopedic, Tonsillectomy Respiratory: No Cardiac: No Neurological: No Last Menstrual Period: Apr 19, 2019 Genitourinary: No Gastrointestinal: No Musculoskeletal: No Endocrine: No HEENT: No Cancer: No Psychosocial: No Family Medical History Reviewed Nursing Family Hx Physical Exam Vital Signs - First Documented Capillary Refill : Less Than 3 Seconds Height: 5'4.00" Weight: 135lbs. 0oz. 61.466054de; 24.00 BMI Method:Stated General Appearance: WD/WN, no apparent distress HEENT: PERRL/EOMI, pharyngeal erythema, other (mild bilateral nasal congestion with clear rhinorrhea and moderate erythema. Tooth near #15 with dental caries) Neck: full range of motion, supple, lymphadenopathy (R), lymphadenopathy (L) Respiratory: lungs clear, normal breath sounds Cardiovascular: regular rate, rhythm, no murmur Gastrointestinal: non tender, soft Neurologic/Psychiatric: alert, oriented x 3 Skin: normal color, warm/dry Progress/Results/Core Measures Suspected Sepsis Recent Fever Within 48 Hours: Yes Infection Criteria Present: Suspected New Infection New/Unexplained Altered Menta: No Sepsis Screen: No Definite Risk SIRS Temperature: Pulse: 83 Respiratory Rate: 15 Blood Pressure 104 /81 Mean: 89 Results/Orders My Orders Orders - NEREIDA ABBOTT MD Dexamethasone Injection (Decadron Inject (04/21/19 10:30) Medications Given in ED Current Medications Medications Dose Ordered Sig/Braulio Route Start Time Stop Time Status Last Admin Dose Admin Dexamethasone Sodium Phosphate 10 mg ONCE ONCE IM 04/21/19 10:30 04/21/19 10:31 DC 04/21/19 10:26 10 MG Vital Signs/I&O 04/21/19 04/21/19 09:48 09:48 Temp 36.9 Pulse 83 Resp 15 B/P (MAP) 104/81 (89) Pulse Ox 98 O2 Delivery Room Air Room Air Capillary Refill : Less Than 3 Seconds Blood Pressure Mean: 89 POS Progress Note : Progress Note Seen and evaluated. Decadron 10 mg IM. We will initiate outpatient antibiotics for the tooth problem. Overall likely viral upper respiratory illness. I did discuss return precautions. Discharged home with return precautions. Patient verbalize understanding instructions and agreement with plan. Departure Impression Primary Impression: Upper respiratory infection Qualified Codes: J06.9 - Acute upper respiratory infection, unspecified Additional Impression: Dental caries Disposition: HOME, SELF-CARE Condition: Stable Departure-Patient Inst. Decision time for Depature: 10:42 Referrals: NO,LOCAL PHYSICIAN (PCP/Family) Primary Care Physician Patient Instructions: Viral Upper Respiratory Infection, Adult (DC), Tooth Decay, Adult (DC) Add. Discharge Instructions: All discharge instructions reviewed with patient and/or family. Voiced understanding. You may take Tylenol/acetaminophen 1000 mg every 8 hours as needed for fever or pain. You may take ibuprofen 600 mg every 8 hours as needed for fever or pain. You may use Afrin nasal spray or the generic, 12 hour relief, 2 sprays to each nostril twice daily for 3 days only and then stop. Do not use more than 3 days. Follow-up with your Dr. in a few days for recheck. Drink plenty of fluids. Return for worse pain, fever, vomiting, weakness, breathing problems or other concerns as needed. Do not take the Tylenol/acetaminophen at the same time as you are taking DayQuil or NyQuil as they both have acetaminophen in them. You need to follow-up with a dentist regarding your tooth. Take antibiotics as directed. Scripts Amoxicillin (Amoxicillin) 500 Mg Capsule 500 MG PO TID, #21 CAP 0 Refills Prov: NEREIDA ABBOTT MD 04/21/19 Images Mouth/Nose 1 - Caries NEREIDA ABBOTT MD Apr 21, 2019 10:24 POS
[2019-04-21] MEDS ORDERED: DEXAMETHASONE 10 MG/ML (DECADRON) 1 ML VIAL IM ONE (10:30)
[2019-04-21] MEDS ORDERED: DEXAMETHASONE 10 MG/ML (DECADRON) 1 ML VIAL IV ONE (10:30)
[2019-04-21] MEDS ORDERED: AMOX500C2 PO (10:47)
[2019-04-21 10:57] VITALS: BP 104/81
== END 2019-04-21 10:58 | disposition home or self-care (01) ==
LOC: EDUNIT# 09:39 → ER 09:41
DX: J06.9 Acute upper respiratory infection, unspecified (principal); K02.9 Dental caries, unspecified; Z88.1 Allergy status to other antibiotic agents; Z90.89 Acquired absence of other organs
CPT/HCPCS: 96372; 99284

== ENCOUNTER 2019-08-07 16:42 | Emergency (ER) | payer BC, OTHER ==
[~2019-08-07] VITALS: Ht 165 cm; Wt 65.7 kg
[~2019-08-07 16:42] MED LIST changes: +AMOX500C2 PO
--- NOTE | 2019-08-07 17:35 | ED Cough/URI ---
General Chief Complaint: Cough/Cold/Flu Symptoms Stated Complaint: FEVER,COUGHING,SORE THROAT Nursing Triage Note: Patient ambulatory to ER with complaint of fever, cough, body aches, and sore throat x 2 days. Patient took tylenol at 04:00 AM today. Sepsis Screen: No Definite Risk Source: patient Exam Limitations: no limitations History of Present Illness Date Seen by Provider: Aug 07, 2019 Time Seen by Provider: 16:44 Initial Comments 23-year-old female who presents to the emergency room with complaints of fever, cough, body aches for the past 3 days. She reports she has been using Tylenol at home for fevers. She denies exposure to flu that she knows of. Denies any phlegm with coughing. Associated Symptoms: cough, fever/chills Allergies and Home Medications Allergies Coded Allergies: vancomycin (Verified Allergy, Intermediate, Hives, 01/09/19) Home Medications Amoxicillin 500 Mg Capsule, 500 MG PO TID Prescribed by: NEREIDA ABBOTT on 04/21/19 1047 Amoxicillin/Potassium Clav 1 Each Tablet, 1 EACH PO TID Prescribed by: NEREIDA ABBOTT on 01/08/19 0913 Patient Home Medication List Home Medication List Reviewed: Yes Review of Systems Review of Systems Constitutional: see HPI, chills, fever Respiratory: see HPI, cough All Other Systems Reviewed Negative Unless Noted: Yes Past Nkdpusg-Wzokxz-Kdrlxh Hx Past Med/Social Hx: Reviewed Nursing Past Med/Soc Hx Patient Social History Alcohol Use: Denies Use Recreational Drug Use: No Smoking Status: Current Everyday Smoker Type Used: Cigarettes 2nd Hand Smoke Exposure: No Recent Foreign Travel: No Contact w/Someone Who Travel: No Recent Infectious Disease Expo: No Recent Hopitalizations: No Immunizations Up To Date Tetanus Booster (TDap): Unknown PED Vaccines UTD: Yes Seasonal Allergies Seasonal Allergies: No Past Medical History Surgeries: Yes Orthopedic, Tonsillectomy Respiratory: No Cardiac: No Neurological: No Genitourinary: No Gastrointestinal: No Musculoskeletal: No Endocrine: No HEENT: No Cancer: No Psychosocial: No Integumentary: No Family Medical History Reviewed Nursing Family Hx Physical Exam Vital Signs - First Documented 08/07/19 16:51 Temp 36.8 Pulse 84 Resp 16 B/P (MAP) 119/68 (85) Pulse Ox 98 O2 Delivery Room Air Capillary Refill : Less Than 3 Seconds Height: 5'4.00" Weight: 135lbs. 0oz. 61.946566do; 24.00 BMI Method:Stated Progress/Results/Core Measures Suspected Sepsis Recent Fever Within 48 Hours: Yes Infection Criteria Present: None New/Unexplained Altered Menta: No Sepsis Screen: No Definite Risk SIRS Temperature: Pulse: 84 Respiratory Rate: 16 Blood Pressure 119 /68 Mean: 85 Results/Orders Micro Results Microbiology 08/07/19 Influenza Types A,B Antigen ([facility]) - Final, Complete Vital Signs/I&O 08/07/19 16:51 Temp 36.8 Pulse 84 Resp 16 B/P (MAP) 119/68 (85) Pulse Ox 98 O2 Delivery Room Air Capillary Refill : Less Than 3 Seconds Blood Pressure Mean: 85 Departure Impression Primary Impression: Influenza-like symptoms Disposition: 01 HOME, SELF-CARE Condition: Stable/Unchanged Departure-Patient Inst. Decision time for Depature: 17:42 Referrals: NO,LOCAL PHYSICIAN (PCP/Family) Primary Care Physician Patient Instructions: Cough, Runny Nose, and the Common Cold (DC) Add. Discharge Instructions: You may use Tylenol and ibuprofen as needed for fevers. Hphi-sov-dvmgzkm cold cough flu medication as per packaging. Do not exceed your daily limit of Tylenol of 4000 mg. Rest, drink plenty of fluids and follow-up your provider within 1 week for recheck if no improvement. Return back to the emergency room for worsening symptoms or concerns as needed. All discharge instructions reviewed with patient and/or family. Voiced understanding. TORY EPPERSON Aug 07, 2019 17:35
[2019-08-07 17:50] VITALS: BP 119/68
== END 2019-08-07 17:51 | disposition home or self-care (01) ==
LOC: EDUNIT# 16:42 → ER 16:43
DX: R09.89 Other specified symptoms and signs involving the circulatory and respiratory systems (principal); F17.210 Nicotine dependence, cigarettes, uncomplicated; Z88.1 Allergy status to other antibiotic agents
CPT/HCPCS: 87804

== ENCOUNTER 2019-08-14 16:44 | Emergency (ER) | payer BC ==
[~2019-08-14] VITALS: Ht 165.1 cm; Wt 62.9 kg
[2019-08-14] MEDS ORDERED: MELO15TA14 PO (17:14)
[2019-08-14] MEDS ORDERED: CIPR2.5D2 OP (17:14)
--- NOTE | 2019-08-14 17:14 | ED EENT ---
History of Present Illness General Chief Complaint: Eye Problems Stated Complaint: KNOT ON L EYE Nursing Triage Note: AMB TO [facility]IG[facility] WITH AREA OF CONCERN ON RL EYE LID Source: patient History of Present Illness Date Seen by Provider: Aug 14, 2019 Time Seen by Provider: 17:05 Initial Comments PT ARRIVES VIA POV FROM HOME WITH FEMALE S.O. C/O PAINFUL "KNOT" TO LEFT UPPER EYELID, ALONG WITH SWELLING OF LEFT UPPER EYELID--NOTICED THIS MORNING SWELLING HAS DECREASED SINCE THIS AM, BUT IS STILL PAINFUL NO FEVER NO DRAINAGE OR MATTING NO VISION CHANGES NO REDNESS TO EYE ITSELF NO HISTORY OF SIMILAR NO HISTORY OF EYE PROBLEMS AND DOES NOT WEAR GLASSES OR CONTACTS. PCP: NONE Allergies and Home Medications Allergies Coded Allergies: vancomycin (Verified Allergy, Intermediate, Hives, 01/09/19) Home Medications Amoxicillin 500 Mg Capsule, 500 MG PO TID Prescribed by: NEREIDA ABBOTT on 04/21/19 1047 Amoxicillin/Potassium Clav 1 Each Tablet, 1 EACH PO TID Prescribed by: NEREIDA ABBOTT on 01/08/19 0913 Ciprofloxacin HCl 2.5 Ml Drops, 2.5 ML OP UD 2 DROPS TO AFFECTED EYE EVERY 2 HOURS WHILE AWAKE FOR FIRST 2 DAYS, THEN Q 4 HOURS WHILE AWAKE FOR A TOTAL OF 7 DAYS Prescribed by: ZULAY KHAN on 08/14/191713 Meloxicam 15 Mg Tablet, 15 MG PO DAILY Prescribed by: ZULAY KHAN on 08/14/191713 Patient Home Medication List Home Medication List Reviewed: Yes Review of Systems Review of Systems Constitutional: no symptoms reported Eyes: See HPI; Denies Blurred Vision, Denies Drainage, Denies Decreased Acuity; Inflammation, Pain; Denies Photophobia, Denies Previous Injury, Denies Contact Lenses, Denies Glasses Neurological: No Symptoms Reported Past Bozqtcm-Cqjjrg-Sqyrdv Hx Past Med/Social Hx: Reviewed and Corrections made Patient Social History Alcohol Use: Occasionally Uses Recreational Drug Use: No Smoking Status: Former Smoker Type Used: Cigarettes 2nd Hand Smoke Exposure: No Recent Foreign Travel: No Contact w/Someone Who Travel: No Recent Infectious Disease Expo: No Recent Hopitalizations: No Immunizations Up To Date Tetanus Booster (TDap): Unknown PED Vaccines UTD: Yes Seasonal Allergies Seasonal Allergies: No Past Medical History Surgeries: Yes Orthopedic, Tonsillectomy Respiratory: No Cardiac: No Neurological: No Genitourinary: No Gastrointestinal: No Musculoskeletal: No Endocrine: No HEENT: No Cancer: No Psychosocial: No Integumentary: No Blood Disorders: No Physical Exam Vital Signs Vital Signs - First Documented 08/14/19 16:54 Temp 36.8 Pulse 75 Resp 18 B/P (MAP) 99/62 (74) Pulse Ox 98 Height, Weight, BMI Height: 5'4.00" Weight: 135lbs. 0oz. 61.045170xu; 23.00 BMI Method:Stated General Appearance: WD/WN, no apparent distress Eyes: right eye normal inspection; left eye stye (LEFT UPPER /OUTER LID. ) Neurologic/Psychiatric: mold maker II-XII nml as tested, no motor/sensory deficits, alert, normal mood/affect, oriented x 3 Skin: normal color, warm/dry Progress/Results/Core Measures Results/Orders Vital Signs/I&O 08/14/19 16:54 Temp 36.8 Pulse 75 Resp 18 B/P (MAP) 99/62 (74) Pulse Ox 98 Blood Pressure Mean: 74 Departure Impression Primary Impression: Hordeolum of left upper eyelid Disposition: 01 HOME, SELF-CARE Condition: Stable Departure-Patient Inst. Referrals: NO,LOCAL PHYSICIAN (PCP/Family) Primary Care Physician Patient Instructions: Stye (Hordeolum), How to Use Eye Drops Add. Discharge Instructions: DO NOT RUB OR SQUEEZE EYE MOIST HEAT TO AREA AT 20 MINUTE INTERVALS TYLENOL NEEDED FOR PAIN FOLLOW UP WITH OF [facility] IN 4-5 DAYS IF NO BETTER All discharge instructions reviewed with patient and/or family. Voiced understanding. Scripts Meloxicam (Mobic) 15 Mg Tablet 15 MG PO DAILY, #10 TAB Prov: ZULAY KHAN DO 08/14/19 Ciprofloxacin HCl (Ciprofloxacin HCl) 2.5 Ml Drops 2.5 ML OP UD for 7 Days, #1 DROPS 2 DROPS TO AFFECTED EYE EVERY 2 HOURS WHILE AWAKE FOR FIRST 2 DAYS, THEN Q 4 HOURS WHILE AWAKE FOR A TOTAL OF 7 DAYS Prov: ZULAY KHAN DO 08/14/19 ZULAY KHAN DO Aug 14, 2019 17:14
[2019-08-14 17:22] VITALS: BP 99/62
== END 2019-08-14 17:24 | disposition home or self-care (01) ==
LOC: EDUNIT# 16:44 → ER 16:46
DX: H00.014 Hordeolum externum left upper eyelid (principal); Z88.1 Allergy status to other antibiotic agents; Z87.891 Personal history of nicotine dependence
CPT/HCPCS: 99282

== ENCOUNTER 2019-10-25 16:23 | Emergency (ER) | payer BC ==
[~2019-10-25] VITALS: Ht 162.6 cm; Wt 63.5 kg
[~2019-10-25 16:23] MED LIST changes: +CIPR2.5D2 OP; +MELO15TA14 PO
[2019-10-25 16:46] VITALS: BP 94/54
[2019-10-25] MEDS ORDERED: AMOX500C2 PO (16:50)
--- NOTE | 2019-10-25 16:50 | ED EENT ---
History of Present Illness General Chief Complaint: Oral/Throat Problems Stated Complaint: THROAT PAIN,POSSIBLE MONTES CHIPS IN THROAT Source: patient Exam Limitations: no limitations History of Present Illness Date Seen by Provider: October 25, 2019 Time Seen by Provider: 16:47 Initial Comments Reports of a sore throat that she noticed this morning. 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 That's when she first noticed the sore throat. Unsure whether it was the sawdust in her throat that causes the discomfort or if that just carey her attention to it. No fever no cough no rhinorrhea Timing/Duration: this morning Severity: moderate Prearrival Treatment: no prearrival treatment Associated Symptoms: No cough, No fever; sore throat Allergies and Home Medications Allergies Coded Allergies: vancomycin (Verified Allergy, Intermediate, Hives, 01/09/19) Home Medications Amoxicillin 500 Mg Capsule, 500 MG PO TID Prescribed by: NEREIDA ABBOTT on 04/21/19 1047 Amoxicillin/Potassium Clav 1 Each Tablet, 1 EACH PO TID Prescribed by: NEREIDA ABBOTT on 01/08/19 0913 Ciprofloxacin HCl 2.5 Ml Drops, 2.5 ML OP UD 2 DROPS TO AFFECTED EYE EVERY 2 HOURS WHILE AWAKE FOR FIRST 2 DAYS, THEN Q 4 HOURS WHILE AWAKE FOR A TOTAL OF 7 DAYS Prescribed by: ZULAY KHAN on 08/14/191713 Meloxicam 15 Mg Tablet, 15 MG PO DAILY Prescribed by: ZULAY KHAN on 08/14/191713 Patient Home Medication List Home Medication List Reviewed: Yes Review of Systems Review of Systems Constitutional: see HPI Eyes: No Symptoms Reported Ears: No Symptoms Reported Nose: no symptoms reported Mouth: no symptoms reported Throat: see HPI, pain Respiratory: no symptoms reported Cardiovascular: no symptoms reported Musculoskeletal: no symptoms reported Skin: no symptoms reported Neurological: No Symptoms Reported Hematologic/Lymphatic: No Symptoms Reported Immunological/Allergic: no symptoms reported Past Rnlrqzx-Condsn-Kixigy Hx Patient Social History Type Used: Cigarettes 2nd Hand Smoke Exposure: No Recent Foreign Travel: No Contact w/Someone Who Travel: No Recent Hopitalizations: No Immunizations Up To Date Tetanus Booster (TDap): Unknown PED Vaccines UTD: Yes Seasonal Allergies Seasonal Allergies: No Past Medical History Surgeries: Yes Orthopedic, Tonsillectomy Respiratory: No Cardiac: No Neurological: No Genitourinary: No Gastrointestinal: No Musculoskeletal: No Endocrine: No HEENT: No Cancer: No Psychosocial: No Integumentary: No Blood Disorders: No Physical Exam Height, Weight, BMI Height: 5'4.00" Weight: 135lbs. 0oz. 61.253699ay; 23.00 BMI Method:Stated General Appearance: WD/WN, no apparent distress Eyes: bilateral eye normal inspection, bilateral eye PERRL, bilateral eye EOMI Ears: bilateral ear auricle normal, bilateral ear canal normal, bilateral ear TM normal Mouth/Throat: other (mild cobblestoning of the oropharynx without exudate) Neck: non-tender, full range of motion Respiratory: normal breath sounds, no respiratory distress, no accessory muscle use Gastrointestinal: normal bowel sounds, non tender Neurologic/Psychiatric: alert, normal mood/affect, oriented x 3 Skin: normal color, warm/dry Departure Impression Primary Impression: Pharyngitis Qualified Codes: J02.9 - Acute pharyngitis, unspecified Disposition: HOME, SELF-CARE Condition: Stable Departure-Patient Inst. Decision time for Depature: 16:49 Referrals: NO,LOCAL PHYSICIAN (PCP/Family) Primary Care Physician Patient Instructions: Sore Throat in Adults Add. Discharge Instructions: 1. The cause of your sore throat is most likely a virus or allergies. However if the pain sticks around beyond 3 days then start the antibiotic that I have sent electronically to the pharmacy. All discharge instructions reviewed with patient and/or family. Voiced under standing. Scripts Amoxicillin (Amoxicillin) 500 Mg Capsule 500 MG PO TID, #21 CAP 0 Refills Prov: LACY ANDINO APRN 10/25/19 Work/School Note: Work Release Form Date Seen in the Emergency Department: October 25, 2019 Return to Work: October 26, 2019 LACY ANDINO APRN October 25, 2019 16:50
--- OUTSIDE RECORDS SUMMARY | 2019-10-25 19:10 | XMS REPORT | Continuity of Care Document ---
Author Organization Unknown Address Unknown Phone Unavailable Allergies Active Description Code Type Severity Reaction Onset Reported/Identified Relationship to Patient Clinical Status Yes No Known Allergies No Known Allergies Drug Allergy Unknown N/A 07/25/2017 Yes No Known Drug Allergies [id number] Drug Allergy Unknown N/A 12/27/2018 Yes vancomycin [id number] Drug Allerg y Moderate Hives 01/09/2019 Medications There is no data. Problems Date Dx Coded Attending Type Code Diagnosis Diagnosed By 12/27/2018 RUSTY TALAMANTES MD, Ot R19 .7 DIARRHEA, UNSPECIFIED 12/27/2018 RUSTY TALAMANTES MD, Ot Z87.891 PERSONAL HISTORY OF NICOTINE DEPENDENCE 12/27/2018 RUSTY TALAMANTES MD Ot Z90.89 ACQUIRED ABSENCE OF OTHER ORGANS 01/02/2019 RUSTY TALAMANTES MD, Ot R19 .7 DIARRHEA, UNSPECIFIED 01/02/2019 RUSTY TALAMANTES MD, Ot Z87.891 PERSONAL HISTORY OF NICOTINE DEPENDENCE 01/02/2019 RUSTY TALAMANTES MD Ot Z90.89 ACQUIRED ABSENCE OF OTHER ORGANS 01/08/2019 NEREIDA ABBOTT MD, Ot S61.451A OPEN BITE OF RIGHT HAND, INITIAL ENCOUNT 01/08/2019 NEREIDA ABBOTT MD, Ot W54.0XXA BITTEN BY DOG, INITIAL ENCOUNTER 01/08/2019 NEREIDA ABBOTT MD, Ot Z23 ENCOUNTER FOR IMMUNIZATION 01/08/2019 NEREIDA ABBOTT MD, Ot Z90.89 ACQUIRED ABSENCE OF OTHER ORGANS 01/09/2019 REY MEEK MD Ot L08.9 LOCAL INFECTION OF THE SKIN AND SUBCUTAN 01/09/2019 REY MEEK MD, Ot M79.641 PAIN IN RIGHT HAND 01/09/2019 REY MEEK MD Ot S61.451D OPEN BITE OF RIGHT HAND, SUBSEQUENT ENCO 01/09/2019 BRUEGGEMANN MD, REY T Ot T36.0X5A ADVERSE EFFECT OF PENICILLINS, INITIAL E 01/09/2019 REY MEEK MD Ot W57.XXXD BIT/STUNG BY NONVENOM INSECT OTH NONVE 01/09/2019 REY MEEK MD Ot Z88.1 ALLERGY STATUS TO OTHER ANTIBIOTIC AGENT 01/16/2019 NEREIDA ABBOTT MD Ot S61.451A OPEN BITE OF RIGHT HAND, INITIAL ENCOUNT 01/16/2019 NEREIDA ABBOTT MD, Ot W54.0XXA BITTEN BY DOG, INITIAL ENCOUNTER 01/16/2019 NEREIDA ABBOTT MD, Ot Z23 ENCOUNTER FOR IMMUNIZATION 01/16/2019 NEREIDA ABBOTT MD, Ot Z90.89 ACQUIRED ABSENCE OF OTHER ORGANS 01/16/2019 REY MEEK MD Ot L08.9 LOCAL INFECTION OF THE SKIN AND SUBCUTAN 01/16/2019 REY MEEK MD Ot M79.641 PAIN IN RIGHT HAND 01/16/2019 REY MEEK MD Ot S61.451D OPEN BITE OF RIGHT HAND, SUBSEQUENT ENCO 01/16/2019 REY MEEK MD, Ot T36.0X5A ADVERSE EFFECT OF PENICILLINS, INITIAL E 01/16/2019 REY MEEK MD Ot W57.XXXD BIT/STUNG BY NONVENOM INSECT OTH NONVE 01/16/2019 REY MEEK MD, Ot Z88.1 ALLERGY STATUS TO OTHER ANTIBIOTIC AGENT 01/16/2019 REY MEEK MD Ot L08.9 LOCAL INFECTION OF THE SKIN AND SUBCUTAN 01/16/2019 REY MEEK MD Ot M79.641 PAIN IN RIGHT HAND 01/16/2019 REY MEEK MD Ot S61.451D OPEN BITE OF RIGHT HAND, SUBSEQUENT ENCO 01/16/2019 REY MEEK MD Ot T36.0X5A ADVERSE EFFECT OF PENICILLINS, INITIAL E 01/16/2019 REY MEEK MD Ot W57.XXXD BIT/STUNG BY NONVENOM INSECT OTH NONVE 01/16/2019 FANTASMA WATTERS, REY Carlisle Ot Z88.1 ALLERGY STATUS TO OTHER ANTIBIOTIC AGENT 01/17/2019 LACY ANDINO PATIENT CARE PROVIDER Ot S61.451D OPEN BITE OF RIGHT HAND, SUBSEQUENT ENCO 01/17/2019 LACY ANDINO PATIENT CARE PROVIDER Ot W54.0XXD BITTEN BY DOG, SUBSEQUENT ENCOUNTER 01/19/2019 LACY ANDINO PATIENT CARE PROVIDER Ot S61.451D OPEN BITE OF RIGHT HAND, SUBSEQUENT ENCO 01/19/2019 LACY ANDINO PATIENT CARE PROVIDER Ot W54.0XXD BITTEN BY DOG, SUBSEQUENT ENCOUNTER 04/21/2019 NEREIDA ABBOTT MD Ot J06.9 ACUTE UPPER RESPIRATORY INFECTION, UNSPE 04/21/2019 NEREIDA ABBOTT MD Ot K02.9 DENTAL CARIES, UNSPECIFIED 04/21/2019 NEREIDA ABBOTT MD Ot R05 COUGH 04/21/2019 NEREIDA ABBOTT MD Ot Z88.1 ALLERGY STATUS TO OTHER ANTIBIOTIC AGENT 04/21/2019 NEREIDA ABBOTT MD Ot Z90.89 ACQUIRED ABSENCE OF OTHER ORGANS 04/27/2019 NEREIDA ABBOTT MD Ot J06.9 ACUTE UPPER RESPIRATORY INFECTION, UNSPE 04/27/2019 NEREIDA ABBOTT MD Ot K02.9 DENTAL CARIES, UNSPECIFIED 04/27/2019 NEREIDA ABBOTT MD Ot R05 COUGH 04/27/2019 NEREIDA ABBOTT MD Ot Z88.1 ALLERGY STATUS TO OTHER ANTIBIOTIC AGENT 04/27/2019 NEREIDA ABBOTT MD Ot Z90.89 ACQUIRED ABSENCE OF OTHER ORGANS 08/07/2019 ZHOU TORY Ot F17.210 NICOTINE DEPENDENCE, CIGARETTES, UNCOMPL 08/07/2019 BERNOT, TORY Ot R05 COUGH 08/07/2019 BERNOT, TORY Ot R09.89 OTH SYMPTOMS AND SIGNS INVOLVING THE CIR 08/07/2019 BERNTURNER TORY Ot Z88.1 ALLERGY STATUS TO OTHER ANTIBIOTIC AGENT 08/13/2019 BERNTURNER, TORY Ot F17.210 NICOTINE DEPENDENCE, CIGARETTES, UNCOMPL 08/13/2019 BERNOT, TORY Ot R05 COUGH 08/13/2019 BERNTURNER TORY Ot R09.89 OTH SYMPTOMS AND SIGNS INVOLVING THE CIR 08/13/2019 BERNOT, TORY Ot Z88.1 ALLERGY STATUS TO OTHER ANTIBIOTIC AGENT 08/14/2019 ZULAY KHAN DO Ot H00.014 HORDEOLUM EXTERNUM LEFT UPPER EYELID 08/14/2019 ZULAY KHAN DO Ot H57.89 OTHER SPECIFIED DISORDERS OF EYE AND ADN 08/14/2019 ZULAY KHAN DO Ot Z87.891 PERSONAL HISTORY OF NICOTINE DEPENDENCE 08/14/2019 ZULAY KHAN DO Ot Z88.1 ALLERGY STATUS TO OTHER ANTIBIOTIC AGENT Procedures There is no data. Results Test Result Range Complete urinalysis with reflex to cultu re - 12/27/18 09:10 Urine color determination YELLOW NRG Urine clarity determination CLEAR NR G Urine pH measurement by test strip 8 5-9 Specific gravity of urine by test strip 1.010 1.016-1.022 Urine protein assay by test strip, semi-quantitative NEGATIVE NEGATIVE Urine glucose detection by automated test strip NE GATIVE NEGATIVE Erythrocytes detection in urine sediment by light micr oscopy NEGATIVE NEGATIVE Urine ketones detection by automated test strip NE GATIVE NEGATIVE Urine nitrite detection by test strip NEGATIVE NEGATIVE Urine total bilirubin detection by test strip NEGA TIVE NEGATIVE Urine urobilinogen measurement by automated test strip (mass/volume) NORMAL NORMAL Urine leukocyte esterase detection by dipstick NEG ATIVE NEGATIVE Automated urine sediment erythrocyte cou nt by microscopy (number/high power field) NONE NRG Automated urine sediment leukocyte count by microscopy (number/high power field) RARE NRG Bacteria detection in urine sediment by light microsco py TRACE NRG Squamous epithelial cells detection in u rine sediment by light microscopy 10-25 NRG Crystals detection in urine sediment by light microsco py NONE NRG Casts detection in urine sediment by light microscopy NONE NRG Mucus detection in urine sediment by light microscopy NEGATIVE NRG Complete urinalysis with reflex to culture NO NRG Complete blood count (CBC) with automate d white blood cell (WBC) differential - 12/27/18 09:13 Blood leukocytes automated count (number/volume) 5.7 10*3/uL 4.3-11.0 Blood erythrocytes automated count (number/volume) 4.94 10*6/uL 4.35-5.85 Venous blood hemoglobin measurement (mass/volume) 13.4 g/dL 11.5-16.0 Blood hematocrit (volume fraction) 40 % 35-52 Automated erythrocyte mean corpuscular volume 81 [ foz_us] 80-99 Automated erythrocyte mean corpuscular h emoglobin (mass per erythrocyte) 27 pg 25-34 Automated erythrocyte mean corpuscular h emoglobin concentration measurement (mass/volume) 34 g/dL 32-36 Automated erythrocyte distribution width ratio 14. 5 % 10.0- 14.5 Automated blood platelet count (count/volume) 316 10*3/uL 130-400 Automated blood platelet mean volume measurement 9.4 [foz_us] 7.4-10.4 Automated blood neutrophils/100 leukocytes 36 % 42-75 Automated blood lymphocytes/100 leukocytes 44 % 12-44 Blood monocytes/100 leukocytes 19 % 0-12 Automated blood eosinophils/100 leukocytes 1 % 0-10 Automated blood basophils/100 leukocytes 0 % 0-10 Blood neutrophils automated count (number/volume) 2.0 10*3 1.8-7.8 Blood lymphocytes automated count (number/volume) 2.5 10*3 1.0-4.0 Blood monocytes automated count (number/volume) 1. 1 10*3 0.0-1.0 Automated eosinophil count 0.1 10*3/uL 0 .0-0.3 Automated blood basophil count (count/volume) 0.0 10*3/uL 0.0-0.1 Comprehensive metabolic panel - 12/27/18 09:13 Serum or plasma sodium measurement (moles/volume) 137 mmol/L 135-145 Serum or plasma potassium measurement (moles/volume) 4.2 mmol/L 3.6-5.0 Serum or plasma chloride measurement (moles/volume) 105 mmol/L 98-107 Carbon dioxide 22 mmol/L 21-32 Serum or plasma anion gap determination (moles/volume) 10 mmol/L 5-14 Serum or plasma urea nitrogen measurement (mass/volume ) 10 mg/dL 7-18 Serum or plasma creatinine measurement (mass/volume) 0.72 mg/dL 0.60-1.30 Serum or plasma urea nitrogen/creatinine mass ratio 14 NRG Serum or plasma creatinine measurement w ith calculation of estimated glomerular filtration rate > NRG Serum or plasma glucose measurement (mass/volume) 96 mg/dL 70-105 Serum or plasma calcium measurement (mass/volume) 9.3 mg/dL 8.5-10.1 Serum or plasma total bilirubin measurement (mass/volu me) 0.9 mg/dL 0.1-1.0 Serum or plasma alkaline phosphatase teresa surement (enzymatic activity/volume) 47 U/L 40-136 Serum or plasma aspartate aminotransfera se measurement (enzymatic activity/volume) 19 U/L 5-34 Serum or plasma alanine aminotransferase measurement (enzymatic activity/volume) 17 U/L 0-55 Serum or plasma protein measurement (mass/volume) 6.8 g/dL 6.4-8.2 Serum or plasma albumin measurement (mass/volume) 4.5 g/dL 3.2-4.5 CALCIUM CORRECTED 8.9 mg/dL 8.5-10.1 Manual absolute plasma cell count - 03/09 09:13 Blood monocytes/100 leukocytes 13 % NRG Manual blood segmented neutrophils/100 leukocytes 32 % NRG Blood band neutrophils/100 leukocytes 2 % NRG Manual blood lymphocytes/100 leukocytes 52 % NRG Manual eosinophils/100 leukocytes in nose 0 % NRG Manual blood basophils/100 leukocytes 0 % NRG Blood lymphocytes variant/100 leukocytes 1 % NRG Blood ovalocytes detection by light microscopy [facility] NR Complete blood count (CBC) with automate d white blood cell (WBC) differential - 01/09/19 20:19 Blood leukocytes automated count (number/volume) 9.4 10*3/uL 4.3-11.0 Blood erythrocytes automated count (number/volume) 4.48 10*6/uL 4.35-5.85 Venous blood hemoglobin measurement (mass/volume) 12.1 g/dL 11.5-16.0 Blood hematocrit (volume fraction) 37 % 35-52 Automated erythrocyte mean corpuscular volume 83 [ foz_us] 80-99 Automated erythrocyte mean corpuscular h emoglobin (mass per erythrocyte) 27 pg 25-34 Automated erythrocyte mean corpuscular h emoglobin concentration measurement (mass/volume) 33 g/dL 32-36 Automated erythrocyte distribution width ratio 14. 9 % 10.0- 14.5 Automated blood platelet count (count/volume) 366 10*3/uL 130-400 Automated blood platelet mean volume measurement 9.3 [foz_us] 7.4-10.4 Automated blood neutrophils/100 leukocytes 47 % 42-75 Automated blood lymphocytes/100 leukocytes 36 % 12-44 Blood monocytes/100 leukocytes 15 % 0-12 Automated blood eosinophils/100 leukocytes 2 % 0-10 Automated blood basophils/100 leukocytes 0 % 0-10 Blood neutrophils automated count (number/volume) 4.4 10*3 1.8-7.8 Blood lymphocytes automated count (number/volume) 3.4 10*3 1.0-4.0 Blood monocytes automated count (number/volume) 1. 4 10*3 0.0-1.0 Automated eosinophil count 0.2 10*3/uL 0 .0-0.3 Automated blood basophil count (count/volume) 0.0 10*3/uL 0.0-0.1 Blood lactic acid measurement (moles/vol ume) - 01/09/19 20:19 Blood lactic acid measurement (moles/volume) 0.80 mmol/L 0.50-2.00 Comprehensive metabolic panel - 01/09/19 20:19 Serum or plasma sodium measurement (moles/volume) 140 mmol/L 135-145 Serum or plasma potassium measurement (moles/volume) 3.7 mmol/L 3.6-5.0 Serum or plasma chloride measurement (moles/volume) 105 mmol/L 98-107 Carbon dioxide 27 mmol/L 21-32 Serum or plasma anion gap determination (moles/volume) 8 mmol/L 5-14 Serum or plasma urea nitrogen measurement (mass/volume ) 10 mg/dL 7-18 Serum or plasma creatinine measurement (mass/volume) 0.80 mg/dL 0.60-1.30 Serum or plasma urea nitrogen/creatinine mass ratio 13 NRG Serum or plasma creatinine measurement w ith calculation of estimated glomerular filtration rate > NRG Serum or plasma glucose measurement (mass/volume) 69 mg/dL 70-105 Serum or plasma calcium measurement (mass/volume) 9.8 mg/dL 8.5-10.1 Serum or plasma total bilirubin measurement (mass/volu me) 0.5 mg/dL 0.1-1.0 Serum or plasma alkaline phosphatase teresa surement (enzymatic activity/volume) 56 U/L 40-136 Serum or plasma aspartate aminotransfera se measurement (enzymatic activity/volume) 17 U/L 5-34 Serum or plasma alanine aminotransferase measurement (enzymatic activity/volume) 16 U/L 0-55 Serum or plasma protein measurement (mass/volume) 6.6 g/dL 6.4-8.2 Serum or plasma albumin measurement (mass/volume) 4.4 g/dL 3.2-4.5 CALCIUM CORRECTED 9.5 mg/dL 8.5-10.1 Serum or plasma C reactive protein measu rement (mass/volume) - 01/09/19 20:19 Serum or plasma C reactive protein measurement (mass/v olume) 0.69 mg/dL 0.00-0.50 Serum or plasma choriogonadotropin (preg ruba test) detection - 01/09/19 20:19 Serum or plasma choriogonadotropin ( test) de tection NEGATIVE NEGATIVE Bacterial blood culture - 01/09/19 20:19 Bacterial blood culture NG NRG Bacterial blood culture - 01/09/19 20:45 Bacterial blood culture NG NRG Influenza virus A and B antigen detectio n - 08/07/19 16:56 FLU RESULT NEGATIVE FOR INFLUENZA A AND B ANTIGENS BY IA NRG Encounters ACCT No. Visit Date/Time Discharge Status Pt. Type Provider Facility Loc./Unit Complaint [id number] 08/14/2019 16:46:00 020 17:24:00 DIS Emergency ZULAY KHAN DO a [facility] ER KNOT ON L EYE [id number] 08/07/2019 16:43:00 17:51:00 DIS Emergency TORY EPPERSON Via [facility] ER FEVER,COUGHING,SORE THR OAT [id number] 04/21/2019 09:41:00 10:58:00 DIS Emergency NEREIDA ABBOTT MD Via [facility] ER SORE THROAT, CH EST CONGESTION, [id number] 01/17/2019 15:26:00 15:50:00 DIS Emergency LACY ANDINO APRN Via [facility] ER R HAND WOUND CHECK [id number] 01/09/2019 18:49:00 22:57:00 DIS Emergency REY MEEK MD Via [facility] ER DOG BITE ON R H AND [id number] 01/08/2019 07:47:00 09:49:00 DIS Emergency NEREIDA ABBOTT MD Via [facility] ER DOG BITE [id number] 12/27/2018 08:41:00 019 10:50:00 DIS Emergency ALBIN WATTERS, RUSTY Braun Via [facility] ER DIARRHEA [id number] 07/25/2017 14:25:00 018 14:45:00 DIS Emergency Jarod MCINTYRE [facility] WED
== END 2019-10-25 16:53 | disposition home or self-care (01) ==
LOC: EDUNIT# 16:23 → ER 16:25
DX: J02.9 Acute pharyngitis, unspecified (principal); Z88.1 Allergy status to other antibiotic agents
CPT/HCPCS: 99282

== ENCOUNTER 2020-01-14 18:53 | Emergency (ER) | payer BC ==
[~2020-01-14] VITALS: Ht 165 cm; Wt 61.0 kg
--- OUTSIDE RECORDS SUMMARY | 2020-01-14 18:57 | XMS REPORT | Continuity of Care Document ---
Author Organization Unknown Address Unknown Phone Unavailable Allergies Active Description Code Type Severity Reaction Onset Reported/Identified Relationship to Patient Clinical Status Yes No Known Allergies No Known Allergies Drug Allergy Unknown N/A 07/25/2017 Yes No Known Drug Allergies [id number] Drug Allergy Unknown N/A 12/27/2018 Yes vancomycin [id number] Drug Allerg y Moderate Hives 01/09/2019 Medications [...] TO OTHER ANTIBIOTIC AGENT 01/17/2019 LACY ANDINO MOBILE PARAMEDICAL EXAMINER Ot S61.451D OPEN BITE OF RIGHT HAND, SUBSEQUENT ENCO 01/17/2019 LACY ANDINO MOBILE PARAMEDICAL EXAMINER Ot W54.0XXD BITTEN BY DOG, SUBSEQUENT ENCOUNTER 01/19/2019 LACY ANDINO MOBILE PARAMEDICAL EXAMINER Ot S61.451D OPEN BITE OF RIGHT HAND, SUBSEQUENT ENCO 01/19/2019 LACY ANDINO MOBILE PARAMEDICAL EXAMINER Ot W54.0XXD BITTEN BY DOG, SUBSEQUENT ENCOUNTER [...] STATUS TO OTHER ANTIBIOTIC AGENT 08/14/2019 ZULAY KAHN DO Ot H00.014 HORDEOLUM EXTERNUM LEFT UPPER EYELID 08/14/2019 ZULAY KHAN DO Ot H57.89 OTHER SPECIFIED DISORDERS OF EYE AND ADN 08/14/2019 ZULAY KHAN DO Ot Z87.891 PERSONAL HISTORY OF NICOTINE DEPENDENCE 08/14/2019 ZULAY KHAN DO Ot Z88.1 ALLERGY STATUS TO OTHER ANTIBIOTIC AGENT 10/25/2019 ANDINOLACY MELLO APRN Ot J02 .9 ACUTE PHARYNGITIS, UNSPECIFIED 10/25/2019 ANDINO, LACY Barnes APRN Ot Z88 .1 ALLERGY STATUS TO OTHER ANTIBIOTIC AGENT 10/26/2019 ANDINO, LACY Barnes APRN Ot J02 .9 ACUTE PHARYNGITIS, UNSPECIFIED 10/26/2019 ANDINO, LACY Barnes APRN Ot Z88 .1 ALLERGY STATUS TO OTHER ANTIBIOTIC AGENT 10/26/2019 LACY ANDINO APRN Ot J02 .9 ACUTE PHARYNGITIS, UNSPECIFIED 10/26/2019 ANDINO, LACY Barnes APRN Ot Z88 .1 ALLERGY STATUS TO OTHER ANTIBIOTIC AGENT Procedures [...] NRG Blood ovalocytes detection by light microscopy [facility] NR Complete blood count (CBC) [...] Status Pt. Type Provider Facility Loc./Unit Complaint [id number] 10/25/2019 16:25:00 020 16:53:00 DIS Emergency LACY ANDINO APRN Via [facility] ER THROAT PAIN,POSSIBLE WO ODS CHIPS IN THROAT [id number] 08/14/2019 16:46:00 020 17:24:00 DIS Emergency ZULAY KHAN DO [facility] ER KNOT ON L EYE [id number] 08/07/2019 16:43:00 020 17:51:00 DIS Emergency TORY EPPERSON Via [facility] ER FEVER,COUGHING,SORE THR OAT [id number] 04/21/2019 09:41:00 10:58:00 DIS Emergency MILENA WATTERS, NEREIDA Kennedy Via [facility] ER SORE THROAT, CH EST CONGESTION, [id number] 01/17/2019 15:26:00 15:50:00 DIS Emergency LACY ANDINO APRN Via [facility] ER R HAND WOUND CHECK [id number] 01/09/2019 18:49:00 22:57:00 DIS Emergency FANTASMA WATTERS, REY Carlisle Via [facility] ER DOG BITE ON R H AND [id number] 01/08/2019 07:47:00 09:49:00 DIS Emergency MILENA WATTERS, NEREIDA Kennedy Via [facility] ER DOG BITE [id number] 12/27/2018 08:41:00 10:50:00 DIS Emergency ALBIN WATTERS, RUSTY Braun Via [facility] ER DIARRHEA [id number] 07/25/2017 14:25:00 14:45:00 DIS Emergency Jarod MCINTYRE [facility]
[2020-01-14] MEDS ORDERED: NAPR-1071 PO (19:25)
[2020-01-14] MEDS ORDERED: PENI500T PO (19:25)
[2020-01-14] MEDS ORDERED: ACET-1672 PO (19:25)
--- NOTE | 2020-01-14 19:25 | ED EENT ---
History of Present Illness General Chief Complaint: Oral/Throat Problems Stated Complaint: DENTAL PAIN Nursing Triage Note: c/o L upper dental pain Source: patient Exam Limitations: no limitations History of Present Illness Date Seen by Provider: Jan 14, 2020 Time Seen by Provider: 19:22 Initial Comments To ER with left upper dental pain that began last night Timing/Duration: abrupt Severity: moderate Location: mouth, dental Prearrival Treatment: no prearrival treatment Associated Symptoms: facial pain/swelling Allergies and Home Medications Allergies Coded Allergies: vancomycin (Verified Allergy, Intermediate, Hives, 01/09/19) Home Medications Amoxicillin 500 Mg Capsule, 500 MG PO TID Prescribed by: NEREIDA ABBOTT on 04/21/19 1047 Amoxicillin 500 Mg Capsule, 500 MG PO TID Prescribed by: LACY ANDINO on 10/25/19 1650 Amoxicillin/Potassium Clav 1 Each Tablet, 1 EACH PO TID Prescribed by: NEREIDA ABBOTT on 01/08/19 0913 Ciprofloxacin HCl 2.5 Ml Drops, 2.5 ML OP UD 2 DROPS TO AFFECTED EYE EVERY 2 HOURS WHILE AWAKE FOR FIRST 2 DAYS, THEN Q 4 HOURS WHILE AWAKE FOR A TOTAL OF 7 DAYS Prescribed by: ZULAY KHAN on 08/14/191713 Meloxicam 15 Mg Tablet, 15 MG PO DAILY Prescribed by: ZULAY KHAN on 08/14/191713 Patient Home Medication List Home Medication List Reviewed: Yes Review of Systems Review of Systems Constitutional: see HPI Eyes: No Symptoms Reported Ears: No Symptoms Reported Nose: no symptoms reported Mouth: no symptoms reported Throat: no symptoms reported Respiratory: no symptoms reported Cardiovascular: no symptoms reported Musculoskeletal: no symptoms reported Past Vvedprn-Zvbfxx-Mtmydt Hx Patient Social History Alcohol Use: Denies Use Recreational Drug Use: No Type Used: Cigarettes 2nd Hand Smoke Exposure: No Recent Foreign Travel: No Contact w/Someone Who Travel: No Recent Infectious Disease Expo: No Recent Hopitalizations: No Immunizations Up To Date Tetanus Booster (TDap): Unknown PED Vaccines UTD: Yes Seasonal Allergies Seasonal Allergies: No Past Medical History Surgeries: Yes Orthopedic, Tonsillectomy Respiratory: No Cardiac: No Neurological: No Genitourinary: No Gastrointestinal: No Musculoskeletal: No Endocrine: No HEENT: No Cancer: No Psychosocial: No Integumentary: No Blood Disorders: No Physical Exam Vital Signs Vital Signs - First Documented 01/14/20 18:59 Temp 36.9 Pulse 73 Resp 18 B/P (MAP) 139/93 (108) Pulse Ox 99 Height, Weight, BMI Height: 5'4.00" Weight: 135lbs. 0oz. 61.944833sx; 22.00 BMI Method:Stated General Appearance: WD/WN, no apparent distress Eyes: bilateral eye normal inspection, bilateral eye PERRL, bilateral eye EOMI Ears: bilateral ear auricle normal, bilateral ear canal normal, bilateral ear TM normal Mouth/Throat: other (left molar with large caries in. No palpable abscesses were swelling) Neck: non-tender, full range of motion Respiratory: no respiratory distress, no accessory muscle use Neurologic/Psychiatric: alert, normal mood/affect, oriented x 3 Skin: normal color, warm/dry Progress/Results/Core Measures Results/Orders My Orders Orders - LACY ANDINO APRN Hydrocodone/Apap 5/325 Tablet (Lortab 5 (01/14/20 19:30) Amoxicillin/Clavulanate Tablet (Augmenti (01/14/20 19:30) Vital Signs/I&O 01/14/20 18:59 Temp 36.9 Pulse 73 Resp 18 B/P (MAP) 139/93 (108) Pulse Ox 99 Blood Pressure Mean: 108 Departure Impression Primary Impression: Pain, dental Disposition: 01 HOME, SELF-CARE Condition: Stable Departure-Patient Inst. Decision time for Depature: 19:24 Referrals: NO,LOCAL PHYSICIAN (PCP/Family) Primary Care Physician Patient Instructions: Dental Pain (DC) Add. Discharge Instructions: 1. You must see a dentist. [facility] dental clinic on the and [address] can help. Go there tomorrow to make an appointment to be seen. Take the antibiotics and pain medication as directed. All discharge instructions reviewed with patient and/or family. Voiced understanding. Scripts Acetaminophen/Diphenhydramine (Percogesic 325-12.5 mg Tablet) 1 Each Tablet 2 EACH PO Q6H PRN for PAIN-SEVERE (8-10), #20 TAB Prov: LACY ANDINO APRN 01/14/20 Naproxen (Naprosyn) 500 Mg Tablet 500 MG PO BID PRN for PAIN-SEVERE (8-10), #30 TAB 0 Refills Prov: LACY ANDNIO APRN 01/14/20 Penicillin V Potassium (Penicillin V Potassium) 500 Mg Tablet 500 MG PO QID, #28 TAB Prov: LACY ANDINO APRN 01/14/20 LACY ANDINO APRN Jan 14, 2020 19:25
[2020-01-14 19:30] VITALS: BP 139/93
[2020-01-14] MEDS ORDERED: AUGMENTIN 875 MG TAB (AMOXICILLIN/CLAVULANATE) PO SCH (19:30)
[2020-01-14] MEDS ORDERED: LIDOCAINE 2% VISCOUS 15 ML UDC PO ONE (19:30)
[2020-01-14] MEDS ORDERED: HYDROcodone/APAP 5 MG/325 MG (LORTAB) TAB PO ONE (19:30)
== END 2020-01-14 19:30 | disposition home or self-care (01) ==
LOC: ER 18:53 → EDUNIT# 18:53 → ER 19:30
DX: K02.9 Dental caries, unspecified (principal); Z88.1 Allergy status to other antibiotic agents
CPT/HCPCS: 99283

== ENCOUNTER 2020-01-18 19:43 | Emergency (ER) | payer BC ==
[~2020-01-18] VITALS: Ht 170 cm; Wt 69.0 kg
[~2020-01-18 19:43] MED LIST changes: +ACET-1672 PO; +NAPR-1071 PO; +PENI500T PO
[2020-01-18 19:53] VITALS: BP 140/97
[2020-01-18] MEDS ORDERED: LIDOCAINE 2% VISCOUS 15 ML UDC PO ONE (20:30)
[2020-01-18] MEDS ORDERED: ACETAMINOPHEN 500 MG TAB (TYLENOL) PO ONE (20:30)
[2020-01-18] MEDS ORDERED: HURRICAINE EXT TUBE (BENZOCAINE) ONE (20:31)
--- NOTE | 2020-01-18 20:39 | ED EENT ---
History of Present Illness General Chief Complaint: Dental Problems/Pain Stated Complaint: TOOTH PAIN Nursing Triage Note: Pt to [facility] with c/o a tooth abscess with pain that started a few hours ago. Pt states she was seen here last week with same complaint with no changes. History of Present Illness Date Seen by Provider: Jan 18, 2020 Time Seen by Provider: 20:00 Initial Comments 24-year-old female returns for continued left upper molar pain. She was seen here on 01/14/20 and prescribed penicillin, naproxen and Percogesic. She did not obtain prescription for Percogesic. She is taking her antibiotics as prescribed. She has not established with the dental clinic as instructed. Patient reports taking the naproxen at 1900 she had no Tylenol today. She is not using any ointments or gels on the area of tenderness. She is crying uncontrollably related to pain. Location: dental Prearrival Treatment: over the counter meds, prescription meds Associated Symptoms: denies symptoms Allergies and Home Medications Allergies Coded Allergies: vancomycin (Verified Allergy, Intermediate, Hives, 01/09/19) Home Medications Acetaminophen/Diphenhydramine 1 Each Tablet, 2 EACH PO Q6H PRN for PAIN-SEVERE (8-10) Prescribed by: LACY ANDINO on 01/14/20 192 Amoxicillin 500 Mg Capsule, 500 MG PO TID Prescribed by: NEREIDA ABBOTT on 04/21/19 1047 Amoxicillin 500 Mg Capsule, 500 MG PO TID Prescribed by: LACY ANDINO on 10/25/19 1650 Amoxicillin/Potassium Clav 1 Each Tablet, 1 EACH PO TID Prescribed by: NEREIDA ABBOTT on 01/08/19 0913 Ciprofloxacin HCl 2.5 Ml Drops, 2.5 ML OP UD 2 DROPS TO AFFECTED EYE EVERY 2 HOURS WHILE AWAKE FOR FIRST 2 DAYS, THEN Q 4 HOURS WHILE AWAKE FOR A TOTAL OF 7 DAYS Prescribed by: ZULAY KHAN on 08/14/19 171 Meloxicam 15 Mg Tablet, 15 MG PO DAILY Prescribed by: ZULAY KHAN on 08/14/191713 Naproxen 500 Mg Tablet, 500 MG PO BID PRN for PAIN-SEVERE (8-10) Prescribed by: LACY ANDINO on 01/14/201924 Penicillin V Potassium 500 Mg Tablet, 500 MG PO QID Prescribed by: LACY ANDINO on 01/14/201924 Patient Home Medication List Home Medication List Reviewed: Yes Review of Systems Review of Systems Constitutional: no symptoms reported, see HPI Mouth: see HPI, pain (left upper molar); denies swelling All Other Systems Reviewed Negative Unless Noted: Yes Past Xsijaow-Rxvsun-Ofvlkw Hx Past Med/Social Hx: Reviewed Nursing Past Med/Soc Hx Patient Social History Alcohol Use: Rarely Uses Recreational Drug Use: No Smoking Status: Current Everyday Smoker Type Used: Cigarettes 2nd Hand Smoke Exposure: No Recent Foreign Travel: No Contact w/Someone Who Travel: No Recent Infectious Disease Expo: No Recent Hopitalizations: No Immunizations Up To Date Tetanus Booster (TDap): Unknown PED Vaccines UTD: Yes Seasonal Allergies Seasonal Allergies: No Past Medical History Surgeries: Yes Orthopedic, Tonsillectomy Respiratory: No Cardiac: No Neurological: No Genitourinary: No Gastrointestinal: No Musculoskeletal: No Endocrine: No HEENT: No Cancer: No Psychosocial: No Integumentary: No Blood Disorders: No Physical Exam Vital Signs Vital Signs - First Documented 01/18/20 19:53 Temp 36.4 Pulse 89 Resp 20 B/P (MAP) 140/97 (111) Pulse Ox 99 O2 Delivery Room Air Height, Weight, BMI Height: 5'4.00" Weight: 135lbs. 0oz. 61.762419fo; 23.00 BMI Method:Stated General Appearance: WD/WN, no apparent distress Nose: normal inspection; No discharge Mouth/Throat: normal mouth inspection; No mandibular swelling, No maxillary swelling, No pharynx swelling; other (tenderness left upper molar, no abscess, gingivitis or drainage) Neck: non-tender, full range of motion, supple, normal inspection; No lymphadenopathy (L) Cardiovascular: normal peripheral pulses, regular rate, rhythm Neurologic/Psychiatric: no motor/sensory deficits, alert, normal mood/affect, oriented x 3 Progress/Results/Core Measures Results/Orders My Orders Orders - ELI MORROW Lidocaine 2% Viscous 15 Ml (Xylocaine Vi (01/18/20 20:30) Acetaminophen Tablet (Tylenol Tablet) (01/18/20 20:30) Benzocaine Extension Tube (Hurricaine Ex (01/18/20 20:31) Medications Given in ED Current Medications Medications Dose Ordered Sig/Braulio Route Start Time Stop Time Status Last Admin Dose Admin Acetaminophen 1,000 mg ONCE ONCE PO 01/18/20 20:30 01/18/20 20:31 DC 01/18/20 20:38 1,000 MG Benzocaine 1 ea STK-MED ONCE .ROUTE 01/18/20 20:31 01/18/20 20:33 DC 01/18/20 20:38 1 EA Lidocaine HCl 5 ml ONCE ONCE PO 01/18/20 20:30 01/18/20 20:31 DC 01/18/20 20:38 5 ML Vital Signs/I&O 01/18/20 19:53 Temp 36.4 Pulse 89 Resp 20 B/P (MAP) 140/97 (111) Pulse Ox 99 O2 Delivery Room Air Blood Pressure Mean: 111 Progress Progress Note : Time: 20:00 Progress Note Patient seen and evaluated, will give Tylenol 1000 mg and lidocaine patches to apply to area. 2024 patient threatened to leave AMA, explained if she will wait, we will get the lidocaine on 2x2 for her pain. Stressed the importance to continue to take her antibiotics and use the pain medication as prescribed. She must establish care at [facility] and go to [facility] for appt there. Explained that the ER does not perform dental extractions or treat further dental needs. 2034 patient agreed to stay, she took the Tylenol and her creatinine spray was applied over the area of tenderness and lidocaine 2 x 2 patch. Discharge instructions and return precautions reviewed with her. All questions answered Departure Impression Primary Impression: Pain, dental Disposition: HOME, SELF-CARE Condition: Stable Departure-Patient Inst. Decision time for Depature: 20:35 Referrals: [facility]/CARMELO DELAROSA,LOCAL PHYSICIAN (PCP) Primary Care Physician Patient Instructions: Dental Pain (DC) Add. Discharge Instructions: Take antibiotics and pain medication as previously prescribed. Apply the Lidocaine patches every 2 hours, remove to eat or sleep. Follow-up with [facility] walk[facility] or [facility] for definitive treatment. Use Over the Counter dental pain ointments. Alternate heat and ice to left cheek Return to the emergency department for new, urgent health care needs. All discharge instructions reviewed with patient and/or family. Voiced understanding. ELI MORROW Jan 18, 2020 20:39
--- OUTSIDE RECORDS SUMMARY | 2020-01-18 20:45 | XMS REPORT | Continuity of Care Document ---
Author Organization Unknown Address Unknown Phone Unavailable Allergies Active Description Code Type Severity Reaction Onset Reported/Identified Relationship to Patient Clinical Status Yes No Known Allergies No Known Allergies Drug Allergy Unknown N/A 07/25/2017 Yes No Known Drug Allergies [id number] Drug Allergy Unknown N/A 12/27/2018 Yes vancomycin [id number] Drug Allerg y Moderate Hives 01/09/2019 Medications [...] TO OTHER ANTIBIOTIC AGENT 01/17/2019 LACY ANDINO NURSING CLINICAL DIRECTOR Ot S61.451D OPEN BITE OF RIGHT HAND, SUBSEQUENT ENCO 01/17/2019 LACY ANDINO NURSING CLINICAL DIRECTOR Ot W54.0XXD BITTEN BY DOG, SUBSEQUENT ENCOUNTER 01/19/2019 LACY ANDINO NURSING CLINICAL DIRECTOR Ot S61.451D OPEN BITE OF RIGHT HAND, SUBSEQUENT ENCO 01/19/2019 LACY ANDINO NURSING CLINICAL DIRECTOR Ot W54.0XXD BITTEN BY DOG, SUBSEQUENT ENCOUNTER [...] ALLERGY STATUS TO OTHER ANTIBIOTIC AGENT 08/14/2019 ERIN MCINTYRE, ZULAY Braun Ot H00.014 HORDEOLUM EXTERNUM LEFT UPPER EYELID 08/14/2019 ZULAY KHAN DO Ot H57.89 OTHER SPECIFIED DISORDERS OF EYE AND ADN 08/14/2019 ZULAY KHAN DO Ot Z87.891 PERSONAL HISTORY OF NICOTINE DEPENDENCE 08/14/2019 ZULAY KHAN DO Ot Z88.1 ALLERGY STATUS TO OTHER ANTIBIOTIC AGENT 10/25/2019 ANDINO, LACY Barnes APRN Ot J02 .9 [...] .1 ALLERGY STATUS TO OTHER ANTIBIOTIC AGENT 01/16/2020 ANDINO, LACY Barnes APRN Ot K02 .9 DENTAL CARIES, UNSPECIFIED 01/16/2020 ANDINO, LACY Barnes APRN Ot Z88 .1 ALLERGY STATUS TO OTHER ANTIBIOTIC AGENT 01/16/2020 ANDINO, LACY Barnes APRN Ot K02 .9 DENTAL CARIES, UNSPECIFIED 01/16/2020 ANDINO, LACY Barnes APRN Ot Z88 .1 [...] NRG Blood ovalocytes detection by light microscopy [facility] NRG Complete blood count (CBC) with automate [...] Status Pt. Type Provider Facility Loc./Unit Complaint [id number] 01/14/2020 18:53:00 19:30:00 DIS Outpatient LACY ANDINO APRN Via [facility] ER DENTAL PAIN [id number] 10/25/2019 16:25:00 16:53:00 DIS Emergency LACY ANDINO APRN Via [facility] ER THROAT PAIN,POSSIBLE WO ODS CHIPS IN THROAT [id number] 08/14/2019 16:46:00 17:24:00 DIS Emergency ERIN MCINTYREZULAY [facility] ER KNOT ON L EYE [id number] 08/07/2019 16:43:00 17:51:00 DIS Emergency TORY EPPERSON [facility] ER FEVER,COUGHING,SORE THR OAT [id number] 04/21/2019 09:41:00 10:58:00 DIS Emergency MLIENA WATTERS, NEREIDA Kennedy [facility] ER SORE THROAT, CH EST CONGESTION, [id number] 01/17/2019 15:26:00 15:50:00 DIS Emergency LACY ANDINO APRN [facility] ER R HAND WOUND CHECK [id number] 01/09/2019 18:49:00 22:57:00 DIS Emergency FANTASMA WATTERS, REY Carl[place] Via [facility] ER DOG BITE ON R H AND [id number] 01/08/2019 07:47:00 09:49:00 DIS Emergency MILENA WATTERS, NEREIDA Kennedy Via [facility] ER DOG BITE [id number] 12/27/2018 08:41:00 10:50:00 DIS Emergency RUSTY TALAMANTES MD Via [facility] ER DIARRHEA [id number] 07/25/2017 14:25:00 14:45:00 [facility]
== END 2020-01-18 20:42 | disposition home or self-care (01) ==
LOC: EDUNIT# 19:43 → ER 19:45
DX: K08.89 Other specified disorders of teeth and supporting structures (principal); F17.210 Nicotine dependence, cigarettes, uncomplicated; Z88.1 Allergy status to other antibiotic agents
CPT/HCPCS: 99283

== ENCOUNTER 2020-01-26 18:28 | Emergency (ER) | payer BC ==
[~2020-01-26] VITALS: Ht 165.1 cm; Wt 63.5 kg
[2020-01-26 18:33] VITALS: BP 103/59
--- OUTSIDE RECORDS SUMMARY | 2020-01-26 18:33 | XMS REPORT | Continuity of Care Document ---
Author Organization Unknown Address Unknown Phone Unavailable Allergies Active Description Code Type Severity Reaction Onset Reported/Identified Relationship to Patient Clinical Status Yes No Known Allergies No Known Allergies Drug Allergy Unknown N/A 07/25/2017 Yes No Known Drug Allergies [id number] Drug Allergy Unknown N/A 12/27/2018 Yes vancomycin [id number] Drug Allerg y Moderate Hives 01/09/2019 Medications [...] TO OTHER ANTIBIOTIC AGENT 01/17/2019 LACY ANDINO COOKER MEAL Ot S61.451D OPEN BITE OF RIGHT HAND, SUBSEQUENT ENCO 01/17/2019 LACY ANDINO COOKER MEAL Ot W54.0XXD BITTEN BY DOG, SUBSEQUENT ENCOUNTER 01/19/2019 LACY ANDINO COOKER MEAL Ot S61.451D OPEN BITE OF RIGHT HAND, SUBSEQUENT ENCO 01/19/2019 LACY ANDINO COOKER MEAL Ot W54.0XXD BITTEN BY DOG, SUBSEQUENT ENCOUNTER [...] .1 ALLERGY STATUS TO OTHER ANTIBIOTIC AGENT 01/20/2020 ELI MORROW DIRECTOR [employer] SALES Ot F17.210 NICOTINE DEPENDENCE, CIGARETTES, UNCOMPL 01/20/2020 ELI MORROW DIRECTOR [employer] SALES Ot K08.89 OTHER SPECIFIED DISORDERS OF TEETH AND S 01/20/2020 ELI MORROW DIRECTOR [employer] SALES Ot Z88.1 ALLERGY STATUS TO OTHER ANTIBIOTIC [...] NRG Blood ovalocytes detection by light microscopy I T NRG Complete blood count (CBC) with automate [...] Status Pt. Type Provider Facility Loc./Unit Complaint [id number] 01/18/2020 19:45:00 20:42:00 DIS Outpatient ELI MORROW Nydia saige [facility] ER TOOTH PAIN [id number] 01/14/2020 18:53:00 19:30:00 DIS Outpatient LACY ANDINO APRN Via [facility] ER DENTAL PAIN [id number] 10/25/2019 16:25:00 16:53:00 DIS Emergency LACY ANDINO APRN Via [facility] ER THROAT PAIN,POSSIBLE WO ODS CHIPS IN THROAT [id number] 08/14/2019 16:46:00 17:24:00 DIS Emergency ZULAY KHAN DO [facility] ER KNOT ON L EYE [id number] 08/07/2019 16:43:00 17:51:00 DIS Emergency TORY EPPERSON Via [facility] ER FEVER,COUGHING,SORE THR OAT [id number] 04/21/2019 09:41:00 10:58:00 DIS Emergency MILENA WATTERS, NEREIDA Kennedy Via [facility] ER SORE THROAT, CH EST CONGESTION, [id number] 01/17/2019 15:26:00 15:50:00 DIS Emergency LACY ANDINO APRN Via [facility] ER R HAND WOUND CHECK [id number] 01/09/2019 18:49:00 22:57:00 DIS Emergency REY MEEK MD Via [facility] ER DOG BITE ON R H AND [id number] 01/08/2019 07:47:00 09:49:00 DIS Emergency NEREIDA ABBOTT MD Via [facility] ER DOG BITE [id number] 12/27/2018 08:41:00 10:50:00 DIS Emergency RUSTY TALAMANTES MD Via [facility] ER DIARRHEA [id number] 01/26/2020 18:29:[address] Emergency MILENA WATTERS, NEREIDA Kennedy [facility] ER DENTAL PAIN [id number] 07/25/2017 14:25:00 018 14:45:00 [facility]
[2020-01-26] MEDS ORDERED: ACET-1672 PO (19:09)
[2020-01-26] MEDS ORDERED: CLIN300C11 PO (19:09)
--- NOTE | 2020-01-26 19:10 | ED EENT ---
History of Present Illness General Chief Complaint: Dental Problems/Pain Stated Complaint: DENTAL PAIN Nursing Triage Note: PT AMB TO TRIAGE WITH COMPLAINT OF DENTAL PAIN. STATES SHE IS CONCERNED HER TOOTH IS STILL INFECTED. STATES HAD TOOTH PULLED 6 DAYS AGO. STATES TOOK FULL COURSE OF ANTIBIOTICS. Source: patient Exam Limitations: no limitations History of Present Illness Date Seen by Provider: Jan 26, 2020 Time Seen by Provider: 19:05 Initial Comments To ER with left upper dental pain. She had a tooth removed due to infection 7 days ago. She took 3 days of antibiotics, she notices a recurrence of the swelling and pain starting 2 days ago. Timing/Duration: this morning Severity: moderate Location: throat Associated Symptoms: denies symptoms Allergies and Home Medications Allergies Coded Allergies: vancomycin (Verified Allergy, Intermediate, Hives, 01/09/19) Home Medications Acetaminophen/Diphenhydramine 1 Each Tablet, 2 EACH PO Q6H PRN for PAIN-SEVERE (8-10) Prescribed by: LACY ANDINO on 01/14/201924 Amoxicillin 500 Mg Capsule, 500 MG PO TID Prescribed by: NEREIDA ABBOTT on 04/21/19 1047 Amoxicillin 500 Mg Capsule, 500 MG PO TID Prescribed by: LACY ANDINO on 10/25/19 1650 Amoxicillin/Potassium Clav 1 Each Tablet, 1 EACH PO TID Prescribed by: NEREIDA ABBOTT on 01/08/19 0913 Ciprofloxacin HCl 2.5 Ml Drops, 2.5 ML OP UD 2 DROPS TO AFFECTED EYE EVERY 2 HOURS WHILE AWAKE FOR FIRST 2 DAYS, THEN Q 4 HOURS WHILE AWAKE FOR A TOTAL OF 7 DAYS Prescribed by: ZULAY KHAN on 08/14/19 171 Meloxicam 15 Mg Tablet, 15 MG PO DAILY Prescribed by: ZULAY KHAN on 08/14/191713 Naproxen 500 Mg Tablet, 500 MG PO BID PRN for PAIN-SEVERE (8-10) Prescribed by: LACY ANDINO on 01/14/201924 Penicillin V Potassium 500 Mg Tablet, 500 MG PO QID Prescribed by: LACY ANDINO on 01/14/201924 Patient Home Medication List Home Medication List Reviewed: Yes Review of Systems Review of Systems Constitutional: see HPI Eyes: No Symptoms Reported Ears: No Symptoms Reported Nose: no symptoms reported Mouth: no symptoms reported Throat: no symptoms reported Respiratory: no symptoms reported Cardiovascular: no symptoms reported Musculoskeletal: no symptoms reported Skin: no symptoms reported Neurological: No Symptoms Reported Hematologic/Lymphatic: No Symptoms Reported Immunological/Allergic: no symptoms reported Past Ljscbdc-Lbkhnu-Stnjlg Hx Patient Social History Alcohol Use: Occasionally Uses Recreational Drug Use: No Smoking Status: Current Someday Smoker Type Used: Cigarettes 2nd Hand Smoke Exposure: No Recent Foreign Travel: No Contact w/Someone Who Travel: No Recent Infectious Disease Expo: No Recent Hopitalizations: No Immunizations Up To Date Tetanus Booster (TDap): Unknown PED Vaccines UTD: Yes Seasonal Allergies Seasonal Allergies: No Past Medical History Surgeries: Yes Orthopedic, Tonsillectomy Respiratory: No Cardiac: No Neurological: No Genitourinary: No Gastrointestinal: No Musculoskeletal: No Endocrine: No HEENT: No Cancer: No Psychosocial: No Integumentary: No Blood Disorders: No Physical Exam Vital Signs Vital Signs - First Documented 01/26/20 18:33 Pulse 83 Resp 20 B/P (MAP) 103/59 (74) Pulse Ox 96 O2 Delivery Room Air Height, Weight, BMI Height: 5'4.00" Weight: 135lbs. 0oz. 61.599549om; 23.00 BMI Method:Stated General Appearance: WD/WN, no apparent distress Eyes: bilateral eye normal inspection, bilateral eye PERRL, bilateral eye EOMI Ears: bilateral ear auricle normal, bilateral ear canal normal, bilateral ear TM normal Mouth/Throat: other (no apparent dry socket; no palpable abscess. ) Neck: non-tender, full range of motion Respiratory: normal breath sounds, no respiratory distress, no accessory muscle use Neurologic/Psychiatric: alert, normal mood/affect, oriented x 3 Skin: normal color, warm/dry Progress/Results/Core Measures Results/Orders My Orders Orders - LACY ANDINO APRN Rx-Hydrocodone/Apap 5-325 Mg (Rx-Vicodin (01/26/20 19:15) Ceftriaxone For Im Use (Rocephin For Im (01/26/20 19:15) Lidocaine 1% Inj 20 Ml (Xylocaine 1% Inj (01/26/20 19:15) Vital Signs/I&O 01/26/20 18:33 Pulse 83 Resp 20 B/P (MAP) 103/59 (74) Pulse Ox 96 O2 Delivery Room Air Blood Pressure Mean: 74 Departure Impression Primary Impression: Pain, dental Disposition: 01 HOME, SELF-CARE Condition: Stable Departure-Patient Inst. Decision time for Depature: 19:07 Referrals: NO,LOCAL PHYSICIAN (PCP/Family) Primary Care Physician Patient Instructions: Dental Pain Add. Discharge Instructions: 1. Return to ER for any concerns Scripts Acetaminophen/Diphenhydramine (Percogesic 325-12.5 mg Tablet) 1 Each Tablet 2 EACH PO Q4H PRN for PAIN-MODERATE (5-7), #20 TAB Prov: LACY ANDINO APRN 01/26/20 Clindamycin HCl (Clindamycin HCl) 300 Mg Capsule 300 MG PO TID, #21 CAP Prov: LACY ANDINO APRN 01/26/20 LACY ANDINO APRN Jan 26, 2020 19:10
[2020-01-26] MEDS ORDERED: cefTRIAXone 1,000 MG/2.86 ml vial (IM ONLY) IM SCH (19:15)
[2020-01-26] MEDS ORDERED: RX-HYDROCODONE/APAP 5/325 MG #4 TAB PK PO PRN (19:15)
[2020-01-26] MEDS ORDERED: LIDOCAINE 1% INJ 20 ML 20 ML VIAL INJ ONE (19:15)
[2020-01-26] MEDS ORDERED: AUGMENTIN 875 MG TAB (AMOXICILLIN/CLAVULANATE) PO SCH (19:30)
== END 2020-01-26 19:27 | disposition home or self-care (01) ==
LOC: EDUNIT# 18:28 → ER 18:29
DX: K08.89 Other specified disorders of teeth and supporting structures (principal); F17.210 Nicotine dependence, cigarettes, uncomplicated; Z88.1 Allergy status to other antibiotic agents
CPT/HCPCS: 99283

== ENCOUNTER 2020-07-23 15:51 | Emergency (ER) | payer BC ==
[~2020-07-23] VITALS: Ht 165.1 cm; Wt 63.5 kg
[~2020-07-23 15:51] MED LIST changes: -CIPR2.5D2 OP; +CIPR2.5D3 OP; +CLIN300C12 PO
[2020-07-23 15:55] VITALS: BP 127/87
--- NOTE | 2020-07-23 16:09 | ED Upper Extremity ---
General Chief Complaint: Laceration Stated Complaint: L HAND LACERATION Nursing Triage Note: PT AMB TO TRIAGE WITH COMPLAINT OF LEFT HAND LACERATION. STATES CUT IT ON DOOR AROUND 1130 TODAY. Nursing Sepsis Screen: No Definite Risk Source: patient Exam Limitations: no limitations History of Present Illness Date Seen by Provider: Jul 23, 2020 Time Seen by Provider: 16:07 Initial Comments Laceration to the thenar eminence of the left hand from a piece of fiberglass. Tetanus is up-to-date. Onset: just prior to arrival Severity: moderate Pain/Injury Location: left hand Modifying Factors: Improves With Movement Allergies and Home Medications Allergies Coded Allergies: vancomycin (Verified Allergy, Intermediate, Hives, 01/09/19) Home Medications Acetaminophen/Diphenhydramine 1 Each Tablet, 2 EACH PO Q6H PRN for PAIN-SEVERE (8-10) Prescribed by: LACY ANDINO on 01/14/201924 Acetaminophen/Diphenhydramine 1 Each Tablet, 2 EACH PO Q4H PRN for PAIN-MODERATE (5-7) Prescribed by: LACY ANDINO on 01/26/201908 Amoxicillin 500 Mg Capsule, 500 MG PO TID Prescribed by: NEERIDA ABBOTT on 04/21/19 1047 Amoxicillin 500 Mg Capsule, 500 MG PO TID Prescribed by: LACY ANDINO on 10/25/19 1650 Amoxicillin/Potassium Clav 1 Each Tablet, 1 EACH PO TID Prescribed by: NEREIDA ABBOTT on 01/08/19 0913 Ciprofloxacin HCl 2.5 Ml Drops, 2.5 ML OP UD 2 DROPS TO AFFECTED EYE EVERY 2 HOURS WHILE AWAKE FOR FIRST 2 DAYS, THEN Q 4 HOURS WHILE AWAKE FOR A TOTAL OF 7 DAYS Prescribed by: ZULAY KHAN on 08/14/191713 Clindamycin HCl 300 Mg Capsule, 300 MG PO TID Prescribed by: LACY ANDINO on 01/26/201908 Meloxicam 15 Mg Tablet, 15 MG PO DAILY Prescribed by: ZULAY KHAN on 08/14/191713 Naproxen 500 Mg Tablet, 500 MG PO BID PRN for PAIN-SEVERE (8-10) Prescribed by: LACY ANDINO on 01/14/201924 Penicillin V Potassium 500 Mg Tablet, 500 MG PO QID Prescribed by: LACY ANDINO on 01/14/201924 Patient Home Medication List Home Medication List Reviewed: Yes Review of Systems Constitutional: see HPI EENTM: see HPI Respiratory: no symptoms reported Cardiovascular: no symptoms reported Genitourinary: no symptoms reported Musculoskeletal: see HPI Skin: see HPI Psychiatric/Neurological: No Symptoms Reported Past Vodfyzx-Sdgboi-Qnenwu Hx Patient Social History Alcohol Use: Denies Use Smoking Status: Current Everyday Smoker Type Used: Cigarettes 2nd Hand Smoke Exposure: No Recent Infectious Disease Expo: No Recent Hopitalizations: No Immunizations Up To Date Tetanus Booster (TDap): Unknown PED Vaccines UTD: Yes Seasonal Allergies Seasonal Allergies: No Past Medical History Surgeries: Yes Orthopedic, Tonsillectomy Respiratory: No Cardiac: No Neurological: No Genitourinary: No Gastrointestinal: No Musculoskeletal: No Endocrine: No HEENT: No Cancer: No Psychosocial: No Integumentary: No Blood Disorders: No Physical Exam Vital Signs Vital Signs - First Documented 07/23/20 15:55 Temp 37.1 Pulse 96 Resp 20 B/P (MAP) 127/87 (100) Pulse Ox 100 O2 Delivery Room Air Capillary Refill : Less Than 3 Seconds Height, Weight, BMI Height: 5'4.00" Weight: 135lbs. 0oz. 61.869623wa; 23.00 BMI Method:Stated General Appearance: WD/WN, no apparent distress Neck: non-tender, full range of motion Respiratory: no respiratory distress, no accessory muscle use Elbow/Forearm: normal inspection, non-tender Wrist: Yes normal inspection, Yes non-tender Hand: Left, laceration (There is a long but rather superficial laceration to the thenar eminence of the left hand. Only about 1 cm of this is down to the subcutaneous tissue. This was scrubbed with chlorhexidine/saline solution then irrigated with 60 mL of the same using a syringe and a shield. This was then glued over the 1 cm region with skin affix) Neurologic/Psychiatric: alert, normal mood/affect, oriented x 3 Skin: normal color, warm/dry Progress/Results/Core Measures Results/Orders Vital Signs/I&O 07/23/20 15:55 Temp 37.1 Pulse 96 Resp 20 B/P (MAP) 127/87 (100) Pulse Ox 100 O2 Delivery Room Air Blood Pressure Mean: 100 Departure Impression Primary Impression: Hand laceration Disposition: 01 HOME, SELF-CARE Condition: Stable Departure-Patient Inst. Decision time for Depature: 16:08 Referrals: NO,LOCAL PHYSICIAN (PCP/Family) Primary Care Physician Patient Instructions: Laceration Repair With Glue (DC) Add. Discharge Instructions: To ER for any sign of infection such as redness or swelling. Do not apply any creams lotions or ointments to the hand. Allow the glue to fall off on its own in 3 to 5 days. All discharge instructions reviewed with patient and/or family. Voiced understanding. LACY ANDINO APRN Jul 23, 2020 16:08
== END 2020-07-23 16:18 | disposition home or self-care (01) ==
LOC: EDUNIT# 15:51 → ER 15:53
DX: S61.412A Laceration without foreign body of left hand, initial encounter (principal); F17.210 Nicotine dependence, cigarettes, uncomplicated; Z88.8 Allergy status to other drugs, medicaments and biological substances; W45.8XXA Other foreign body or object entering through skin, initial encounter

== ENCOUNTER 2021-04-06 18:44 | Emergency (ER) | payer BC ==
[~2021-04-06] VITALS: Ht 165.1 cm; Wt 63.5 kg
--- OUTSIDE RECORDS SUMMARY | 2021-04-06 18:49 | XMS REPORT | Clinical Summary ---
Author Author [facility] Organization [facility] Address Unknown Phone Unavailable Care Team Providers Care Castings Drafter Name Role Phone No Pcp, Na PCP Unavailable Source Comments Some departments are not documenting in the electronic medical record. If you d o not see the information that you expected, contact Release of Information in [facility] department at [phone] for further assistan ce in locating additional records.[facility] Allergies Comments Active Allergy Reactions Severity Noted Date Vancomycin HIVES Medium 01/10/2019 Medications End Date Status Medication Sig Dispensed Refills Start Date Active oxyCODONE (ROXICODONE, Take one 15 tablet 0 OXY-IR) 5 mg tablet tablet by 9 mouth every 6 hours as needed Active Problems Problem Noted Date Cellulitis of hand 01/10/2019 Social History Date Tobacco Use Types Packs/Day Years Used Never Smoker Smokeless Tobacco: Never Used Comments Alcohol Use Standard Drinks/Week Yes 0 (1 standard drink = 0.6 o z pure alcohol) Sex Assigned at Date Recorded Not on file Last Filed Vital Signs Reading Time Taken Comments Vital Sign 114/64 01/10/2019 11:53 AM CDT Blood Pressure 60 01/10/2019 8:00 AM CDT Pulse 36.6 C (97.8 F) 01/10/2019 11:53 AM CDT Temperature - - Respiratory Rate 99% 01/10/2019 11:53 AM CDT Oxygen Saturation - - Inhaled Oxygen Concentration 60.8 kg (134 lb) 01/10/2019 4:12 AM CDT Weight - - Height - - Body Mass Index Plan of Treatment Health Maintenance Due Date Last Done Comments HPV VACCINES (1 - 2-dose 12/24/2006 series) HIV SCREENING 12/24/2010 DTAP/TDAP VACCINES ( - 12/24/2013 Tdap) HEPATITIS C SCREENING 12/24/2013 PHYSICAL (COMPREHENSIVE) 12/24/2013 EXAM CERVICAL CANCER SCREENING 12/24/2016 INFLUENZA VACCINE 01/19/2021 Results Not on filefrom Last 3 Months Advance Directives Patient Joint Sealer Explanation Type Date Recorded Advance 01/10/2019 2:07 AM Directive/DPOA Date Inactivated Comments Code Status Date Activated 01/10/2019 2:19 PM Full Code 01/10/2019 3:57 AM Provider has discussed Code Status No, discussion no t w/Patient or Family? necessary based on Dx
[2021-04-06] MEDS ORDERED: IBUPROFEN 800 MG (MOTRIN) TAB PO STA (19:29)
--- NOTE | 2021-04-06 19:35 | ED EENT ---
History of Present Illness General Chief Complaint: Dental Problems/Pain Stated Complaint: DENTAL ABSCESS Nursing Triage Note: PATIENT STATES THAT LAST WEEK SHE BEGAN TO HAVE PAIN IN HER TOOTH LOCATED ON THE UPPER RIGHT SIDE. SHE WAS SCHEDULED TO HAVE IT EXTRACTED BUT CANCELLED BECAUSE SHE "KNEW IT WAS INFECTED". SHE DENIES FEVER AND HAS NOT TAKEN ANY ANTIBIOTICS FOR IT AND NO PAIN MEDICATION. (ELI MORROW) History of Present Illness Date Seen by Provider: Apr 06, 2021 Time Seen by Provider: 19:22 Initial Comments 25-year-old female presents for right upper molar pain. She has had treatment on this tooth that access dental but was concerned there was a possible infection. She has not had any Tylenol or ibuprofen prior to arrival. Severity: mild Prearrival Treatment: no prearrival treatment Associated Symptoms: denies symptoms (ELI MORROW) Allergies and Home Medications Allergies Coded Allergies: vancomycin (Verified Allergy, Intermediate, Hives, 01/09/19) Patient Home Medication List Home Medication List Reviewed: Yes (ELI MORROW) Acetaminophen/Diphenhydramine (Percogesic 325-12.5 mg Tablet) 1 Each Tablet, 2 EACH PO Q6H PRN for PAIN-SEVERE (8-10) Prescribed by: LACY ANDINO on 01/14/201924 Acetaminophen/Diphenhydramine (Percogesic 325-12.5 mg Tablet) 1 Each Tablet, 2 EACH PO Q4H PRN for PAIN-MODERATE (5-7) Prescribed by: LACY ANDINO on 01/26/20 190 Amoxicillin (Amoxicillin) 500 Mg Capsule, 500 MG PO TID Prescribed by: NEREIDA ABBOTT on 04/21/19 1047 Amoxicillin (Amoxicillin) 500 Mg Capsule, 500 MG PO TID Prescribed by: LACY ANDINO on 10/25/19 1650 Amoxicillin/Potassium Clav (Amox Tr-K Clv 500-125 mg Tab) 1 Each Tablet, 1 EACH PO TID Prescribed by: NEREIDA ABBOTT on 01/08/19 0913 Ciprofloxacin HCl (Ciprofloxacin HCl) 2.5 Ml Drops, 2.5 ML OP UD Prescribed by: ZULAY KHAN on 08/14/19 1714 Clindamycin HCl (Clindamycin HCl) 300 Mg Capsule, 300 MG PO TID Prescribed by: LACY ANDINO on 8/7/20 1909 Meloxicam (Mobic) 15 Mg Tablet, 15 MG PO DAILY Prescribed by: ZULAY KHAN on 08/14/19 171 Naproxen (Naprosyn) 500 Mg Tablet, 500 MG PO BID PRN for PAIN-SEVERE (8-10) Prescribed by: LACY ANDINO on 01/14/201924 Penicillin V Potassium (Penicillin V Potassium) 500 Mg Tablet, 500 MG PO QID Prescribed by: LACY ANDINO on 01/14/201924 Review of Systems Review of Systems Constitutional: no symptoms reported Mouth: see HPI, pain (Dental pain on the right upper) (ELI MORROW) All Other Systems Reviewed Negative Unless Noted: Yes (ELI MORROW) Past Pvpynuf-Mhyzyw-Jdkwis Hx Immunizations Up To Date Tetanus Booster (TDap): Unknown PED Vaccines UTD: Yes (ELI MORROW) Seasonal Allergies Seasonal Allergies: No (ELI MORROW) Past Medical History Surgeries: Yes Orthopedic, Tonsillectomy Respiratory: No Cardiac: No Neurological: No Genitourinary: No Gastrointestinal: No Musculoskeletal: No Endocrine: No HEENT: No Cancer: No Psychosocial: No Integumentary: No Blood Disorders: No (ELI MORROW) Family Medical History Reviewed Nursing Family Hx (ELI MORROW) Physical Exam Vital Signs Vital Signs - First Documented 04/06/21 19:03 Temp 36.6 Pulse 72 Resp 16 B/P (MAP) 104/58 (73) Pulse Ox 99 O2 Delivery Room Air (MARY KHANA Aparna ) Height, Weight, BMI Height: 5'4.00" Weight: 135lbs. 0oz. 61.441411oo; 23.00 BMI Method:Stated General Appearance: WD/WN, no apparent distress Ears: bilateral ear auricle normal, bilateral ear canal normal, bilateral ear TM normal Nose: normal inspection; No active bleeding, No discharge Mouth/Throat: normal mouth inspection, pharynx normal, dental tenderness (right uppper molar); No excessive drooling; other (no tenderness to gingiva, no erythema or d/c) Neck: non-tender, full range of motion, supple, normal inspection Cardiovascular: normal peripheral pulses, regular rate, rhythm Respiratory: chest non-tender, lungs clear, normal breath sounds Neurologic/Psychiatric: no motor/sensory deficits, alert, normal mood/affect, oriented x 3 Skin: normal color, warm/dry (ELI MORROW) Progress/Results/Core Measures Results/Orders Vital Signs/I&O 04/06/21 04/06/21 04/06/21 19:03 19:33 19:43 Temp 36.6 36.6 36.7 Pulse 72 70 Resp 16 18 B/P (MAP) 104/58 (73) 110/62 Pulse Ox 99 99 O2 Delivery Room Air Room Air (ZULAY KHAN DO) Blood Pressure Mean: 73 Departure Impression Primary Impression: Pain, dental Disposition: HOME, SELF-CARE Condition: Improved Departure-Patient Inst. Decision time for Depature: 19:35 (ELI MORROW) Referrals: [facility] (PCP/Family) Primary Care Physician Patient Instructions: Dental Pain (DC) Add. Discharge Instructions: Follow-up with your dentist, call tomorrow for appointment. Alternate between Tylenol 650 mg ibuprofen 600 mg every 4 hours for pain. Rinse your mouth with warm salt water every 1-2 hours as needed. Return to the emergency department for new, urgent healthcare needs. All discharge instructions reviewed with patient and/or family. Voiced understanding. ATTENDING PHYSICIAN NOTE: I WAS PHYSICALLY PRESENT ER PHYSICIAN WHEN THIS PATIENT WAS IN ER, BUT I WAS NOT INVOLVED IN DECISION MAKING OR ANY CARE OF THIS PATIENT. (ZULAY KHAN DO) ELI MORROW Apr 06, 2021 19:35 ZULAY KHAN DO Apr 06, 2021 20:22
[2021-04-06 19:43] VITALS: BP 110/62
== END 2021-04-06 19:48 | disposition home or self-care (01) ==
LOC: EDUNIT# 18:44 → ER 18:47
DX: K08.89 Other specified disorders of teeth and supporting structures (principal)
CPT/HCPCS: 99283

== ENCOUNTER 2022-08-19 02:07 | Emergency (ER) | payer SELFPAY ==
[~2022-08-19] VITALS: Ht 165.1 cm; Wt 63.5 kg
[~2022-08-19 02:07] MED LIST changes: +CLIN-144 PO; -CLIN300C12 PO
[2022-08-19] MEDS ORDERED: LIDOCAINE 1% INJ 10 ML VIAL ONE (02:25)
[2022-08-19] MEDS ORDERED: LIDOCAINE 1% INJ 20 ML VIAL INJ ONE (02:30)
--- NOTE | 2022-08-19 02:31 | ED Integumentary General ---
General Stated Complaint: LEFT LEG LAC Source: patient Exam Limitations: no limitations History of Present Illness Date Seen by Provider: Aug 19, 2022 Time Seen by Provider: 02:12 Initial Comments 26-year-old female presents for laceration to her left thigh. She was filleting a fish and cut her leg with the knife. No other injuries. Last tetanus shot was in 2019. Allergies and Home Medications Allergies Coded Allergies: vancomycin (Verified Allergy, Intermediate, Hives, 01/09/19) Patient Home Medication List Home Medication List Reviewed: Yes Acetaminophen/Diphenhydramine (Percogesic 325-12.5 mg Tablet) 1 Each Tablet, 2 EACH PO Q6H PRN for PAIN-SEVERE (8-10) Prescribed by: LACY ANDINO on 01/14/201924 Acetaminophen/Diphenhydramine (Percogesic 325-12.5 mg Tablet) 1 Each Tablet, 2 EACH PO Q4H PRN for PAIN-MODERATE (5-7) Prescribed by: LACY ANDINO on 01/26/201908 Amoxicillin (Amoxicillin) 500 Mg Capsule, 500 MG PO TID Prescribed by: NEREIDA ABBOTT on 04/21/19 1047 Amoxicillin (Amoxicillin) 500 Mg Capsule, 500 MG PO TID Prescribed by: LACY ANDINO on 10/25/19 1650 Amoxicillin/Potassium Clav (Amox Tr-K Clv 500-125 mg Tab) 1 Each Tablet, 1 EACH PO TID Prescribed by: NEREIDA ABBOTT on 01/08/19 0913 Cephalexin (Cephalexin) 500 Mg Tablet, 500 MG PO BID Prescribed by: CARTER ALCANTARA MD on 08/19/22 0247 Ciprofloxacin HCl (Ciprofloxacin HCl) 2.5 Ml Drops, 2.5 ML OP UD Prescribed by: ZULAY KHAN on 08/14/191713 Clindamycin HCl (Clindamycin HCl) 300 Mg Capsule, 300 MG PO TID Prescribed by: LACY ANDINO on 01/26/201908 Meloxicam (Mobic) 15 Mg Tablet, 15 MG PO DAILY Prescribed by: ZULAY KHAN on 08/14/191713 Naproxen (Naprosyn) 500 Mg Tablet, 500 MG PO BID PRN for PAIN-SEVERE (8-10) Prescribed by: LACY ANDINO on 01/14/20 192 Penicillin V Potassium (Penicillin V Potassium) 500 Mg Tablet, 500 MG PO QID Prescribed by: LACY ANDINO on 01/14/201924 Review of Systems Review of Systems Constitutional: no symptoms reported Past Vnewiip-Plrxiz-Eungdv Hx Immunizations Up To Date Tetanus Booster (TDap): Unknown PED Vaccines UTD: Yes Seasonal Allergies Seasonal Allergies: No Past Medical History Surgeries: Yes Orthopedic, Tonsillectomy Respiratory: No Cardiac: No Neurological: No Genitourinary: No Gastrointestinal: No Musculoskeletal: No Endocrine: No HEENT: No Cancer: No Psychosocial: No Integumentary: No Blood Disorders: No Physical Exam Vital Signs Vital Signs - First Documented 08/19/22 02:19 Pulse 129 Resp 20 B/P (MAP) 105/71 (82) Pulse Ox 98 O2 Delivery Room Air Capillary Refill : General Appearance: WD/WN, no apparent distress Cardiovascular: regular rate, rhythm, no murmur Respiratory: chest non-tender, lungs clear, normal breath sounds, no respiratory distress, no accessory muscle use Extremities: other (12 cm laceration left anterior thigh. Subcutaneous. Neurovascular motor and sensory intact distally.) Neurologic/Psychiatric: alert, oriented x 3 Skin: other (Laceration as described above) Procedures/Interventions Wound Location: Lower Extremities Wound Length (cm): 10 Wound's Depth, Shape: sub Q Wound Explored: clean Irrigated w/ Saline (ccs): 500 Anesthesia: 1% Lidocaine Volume Anesthetic (ccs): 10 Suture: Silk Suture Size: 3-0 Number of Sutures: 11 Layer Closure?: 1 Progress/Results/Core Measures Results/Orders My Orders Orders - CARTER ALCANTARA DO Lidocaine 1% Inj 20 Ml (Xylocaine 1% Inj (08/19/22 02:30) Lidocaine 1% Inj 10 Ml (Xylocaine 1% Inj (08/19/22 02:25) Vital Signs/I&O 08/19/22 08/19/22 02:19 02:55 Pulse 129 99 Resp 20 18 B/P (MAP) 105/71 (82) 105/71 Pulse Ox 98 98 O2 Delivery Room Air Room Air Departure Communication (Admissions) Patient is hemodynamically stable. Wound cleansed thoroughly and repaired with sutures. No evidence for tenderness, ligamentous, vascular or nerve injury. Tetanus is up-to-date. She is discharged in stable condition. Impression Primary Impression: Leg laceration Qualified Codes: S81.812A - Laceration without foreign body, left lower leg, initial encounter Disposition: 01 HOME, SELF-CARE Condition: Stable Departure-Patient Inst. Referrals: [facility] (PCP/Family) Primary Care Physician Patient Instructions: Laceration Repair With Stitches (DC) Add. Discharge Instructions: Have the stitches removed in 10-14 days. Keep the wound clean. Return to the emergency department for any redness that spreading or drainage that looks like pus. Take the antibiotics as prescribed, I have called them into your pharmacy. Do not submerge the wound in lakes, pools or hot tubs. Scripts Cephalexin (Cephalexin) 500 Mg Tablet 500 MG PO BID for 10 Days, #10 TAB Prov: CARTER ALCANTARA DO 08/19/22 CARTER ALCANTARA DO Aug 19, 2022 02:31
[2022-08-19] MEDS ORDERED: CEPH500T PO (02:47)
[2022-08-19 02:55] VITALS: BP 105/71
== END 2022-08-19 02:55 | disposition home or self-care (01) ==
LOC: EDUNIT# 02:07 → ER 02:11
DX: S81.812A Laceration without foreign body, left lower leg, initial encounter (principal); Z88.1 Allergy status to other antibiotic agents; Z28.310 Unvaccinated for COVID-19; W26.0XXA Contact with knife, initial encounter
CPT/HCPCS: 12015